=== PATIENT | female | born 1960 | race Caucasian/White ===

== ENCOUNTER 2021-10-02 12:34 | Emergency (ER) | payer OTHER, SELFPAY ==
[2021-10-02 12:46] VITALS: BP 138/70; PULSE 72; O2SAT 98
--- NOTE | 2021-10-02 12:53 | ED_ITS ---
HPI - Alcohol General Chief Complaint: ETOH/Substance Use Stated Complaint: ETOH,SI Time Seen by Provider: 10/02/21 12:46 Source: patient and EMS Mode of arrival: EMS Limitations: other (Alcohol intoxication) History of Present Illness HPI narrative: 61-year-old female with history of alcohol abuse has been to detox she states the last time was 20 years ago. States he has been a heavy drinker for most of her life she has been drinking vodka for several days. States her last drink was just prior to arrival in the emergency department. She also told EMS that she was feeling suicidal. Patient denies falls headache chest pain nausea vomiting or diarrhea. MD complaint: alcohol intoxication, alcohol dependence and desires rehab Related Data Allergies Allergy/AdvReac Type Severity Reaction Status Date / Time No Known Allergies Allergy Verified 10/02/21 12:49 Review of Systems Review of Systems: Review of systems: General: Patient denies any fever chills recent illness or falls Musculoskeletal: Denies back pain or body aches or other injuries HEENT: denies headache, runny nose, ear pain Respiratory: denies shortness of breath, cough Cardiovascular: no chest pain or palpitations : denies dysuria, frequency Abdomen: no nausea vomiting denies abdominal pain Extremities: no swelling, no pain Skin: no diaphoresis Yes all other systems are reviewed and are negative PMFSH Past Medical History Medical History (Updated 10/02/21 @ 19:02 by Blanco Ferreira DO) Alcoholism Social History Social History Advance Directives: No Advance Directives Information Provided: No Physical Exam Vital Signs: Vital Signs: Last Vital Signs Temp 98.1 F 10/02/21 15:02 Pulse 88 10/02/21 15:02 Resp 18 10/02/21 15:02 BP 110/63 10/02/21 15:02 Pulse Ox 97 10/02/21 15:02 BMI result Body Mass Index 21.9 General: Well-appearing well-nourished in no signs of distress HEENT: Normocephalic atraumatic alcoholic halitosis Neck: No signs of JVD, no masses no tenderness or lymphadenopathy Cardiovascular: Regular rate and rhythm Respiratory: Clear to auscultation bilaterally Abdomen: Soft nontender no masses Extremities: Normal pedal pulses no signs of edema Skin: Dry warm no rashes Back: No tenderness full ROM MDM - Alcohol MDM Narrative Medical decision making narrative: 61-year-old female heavily intoxicated I spoke with nursing about placing the patient on a sea what to watch for toxication as well as give medications. I will give patient fluids check labs. I will wait for the 1st alcohol level or give the patient Ativan. 1547 patient has no signs of withdrawal here in the emergency department labs show an elevated alcohol level patient was met by educators to see if patient could go to detox there are no detox beds available patient was given resources patient will not be sober until 19:00 hours. 1600 patient now in the room comfortably drink a soft drink I will give patient 1 mg Ativan. 1901 patient ambulated to bathroom without issue patient is now easily alert answering questions appropriately patient is given services to come for detox is [facility] beds available. Patient is happy with plan to go home. Differential Diagnosis Differential diagnosis: Likely alcohol dependence, alcohol withdrawal delirium, hypomagnesemia, alcohol intoxication, alcohol ketoacidosis and alcohol withdrawal syndrome Medical Records Attestation: I reviewed the patient's medical records. Lab Data Result diagrams: 10/02/21 13:03 10/02/21 13:03 Labs: Lab Results 10/02/21 10/02/21 10/02/21 Range/Units 13:00 13:03 13:03 WBC 7.1 (4.8-10.8) X10*3/uL RBC 4.66 (4.20-5.50) X10*6/uL Hgb 13.2 (12.0-16.0) g/dl Hct 40.2 (37.0-47.0) % MCV 86.3 (80.0-98.0) fL MCH 28.3 (27.0-33.0) pg MCHC 32.8 (31.0-35.0) g/dl RDW 14.3 (11.0-16.0) % Plt Count 469 H (160-400) X10*3/uL MPV 9.0 L (9.4-12.3) fL Immature Gran % (Auto) 0.1 (0.0-0.4) % Neut % (Auto) 32.2 L (45-73) % Lymph % (Auto) 54.2 H (20-40) % [place] % (Auto) 10.3 (2-11) % Eos % (Auto) 2.5 (0-4) % Baso % (Auto) 0.7 (0-2) % Lymph # (Auto) 3.9 (1.2-4.9) X10*3/uL [place] # (Auto) 0.7 (0.1-1.2) X10*3/uL Eos # (Auto) 0.2 (0.0-0.4) X10*3/uL Baso # (Auto) 0.1 (0.0-0.2) X10*3/uL Abs Immat Gran (auto) 0.01 (0.00-0.03) X10*3/uL Absolute Neuts (auto) 2.3 (2.0-8.3) x10*3/uL Absolute Nucleated RBC 0.000 (0.0-0.012) X10*3/uL Nucleated RBC % (auto) 0.0 (0.0-0.2) /100WBC Sodium 142 (135-145) mmol/L Potassium 4.0 (3.3-5.1) mmol/L Chloride 108 (96-108) mmol/L Carbon Dioxide 23 (22-29) mmol/L Anion Gap 15 (12-20) BUN 9 (9-16) mg/dL Creatinine 0.68 (0.5-1.4) mg/dL Estim Creat Clear Calc 86.6 Estimated GFR > 60 Random Glucose 72 (60-115) mg/dL Calcium 9.6 (8.4-10.2) mg/dL Total Bilirubin < 0.2 (0.0-1.0) mg/dL Direct Bilirubin < 0.2 (0.0-0.5) mg/dL AST 22 (5-31) U/L ALT 17 (0-31) U/L Alkaline Phosphatase 98 (39-117) U/L Total Protein 7.6 (6.5-8.0) g/dL Albumin 4.4 (3.5-5.0) g/dL Lipase 71 (8-78) U/L Salicylates < 5.0 L (15-30) mg/dL Acetaminophen < 1 (<30) mcg/mL Ethyl Alcohol mg/dL COVID-19 ([facility]) Negative (Negative) COVID-19 Clin Com See Note 10/02/21 Range/Units 13:03 WBC (4.8-10.8) X10*3/uL RBC (4.20-5.50) X10*6/uL Hgb (12.0-16.0) g/dl Hct (37.0-47.0) % MCV (80.0-98.0) fL MCH (27.0-33.0) pg MCHC (31.0-35.0) g/dl RDW (11.0-16.0) % Plt Count (160-400) X10*3/uL MPV (9.4-12.3) fL Immature Gran % (Auto) (0.0-0.4) % Neut % (Auto) (45-73) % Lymph % (Auto) (20-40) % [place] % (Auto) (2-11) % Eos % (Auto) (0-4) % Baso % (Auto) (0-2) % Lymph # (Auto) (1.2-4.9) X10*3/uL [place] # (Auto) (0.1-1.2) X10*3/uL Eos # (Auto) (0.0-0.4) X10*3/uL Baso # (Auto) (0.0-0.2) X10*3/uL Abs Immat Gran (auto) (0.00-0.03) X10*3/uL Absolute Neuts (auto) (2.0-8.3) x10*3/uL Absolute Nucleated RBC (0.0-0.012) X10*3/uL Nucleated RBC % (auto) (0.0-0.2) /100WBC Sodium (135-145) mmol/L Potassium (3.3-5.1) mmol/L Chloride (96-108) mmol/L Carbon Dioxide (22-29) mmol/L Anion Gap (12-20) BUN (9-16) mg/dL Creatinine (0.5-1.4) mg/dL Estim Creat Clear Calc Estimated GFR Random Glucose (60-115) mg/dL Calcium (8.4-10.2) mg/dL Total Bilirubin (0.0-1.0) mg/dL Direct Bilirubin (0.0-0.5) mg/dL AST (5-31) U/L ALT (0-31) U/L Alkaline Phosphatase (39-117) U/L Total Protein (6.5-8.0) g/dL Albumin (3.5-5.0) g/dL Lipase (8-78) U/L Salicylates (15-30) mg/dL Acetaminophen (<30) mcg/mL Ethyl Alcohol 275 mg/dL COVID-19 ([facility]) (Negative) COVID-19 Clin Com Discharge Plan Discharge Clinical Impression: Alcoholic intoxication, Alcohol withdrawal syndrome Patient Disposition: Home, Self-Care Instructions: Abuse of Alcohol (ED), Alcohol Use Disorder (ED), Alcohol Withdrawal (ED) Additional Instructions: Please call follow-up with detox if you have any other concerns please do not hesitate to come back to the emergency department Stand Alone Forms: Substance Abuse Outpt Detox
[2021-10-02 12:55] VITALS: BP 132/81; PULSE 90; RESP 18; TEMP 36.6; O2SAT 98; BMI 21.9
[2021-10-02 13:10] LABS: MANUAL DIFF FLAG NO
[2021-10-02 13:13] LABS: Basophils Absolute Auto 0.1 X10*3/uL (0.0-0.2); Basophils Percent Auto 0.7 % (0-2); Eosinophils Absolute Auto 0.2 X10*3/uL (0.0-0.4); Eosinophils Percent Auto 2.5 % (0-4); Hematocrit 40.2 % (37.0-47.0); Hemoglobin 13.2 g/dl (12.0-16.0); Imm Gran Abs Auto 0.01 X10*3/uL (0.00-0.03); Imm Gran Pct Auto 0.1 % (0.0-0.4); Lymphocytes Absolute Auto 3.9 X10*3/uL (1.2-4.9); Lymphocytes Percent Auto 54.2 % (20-40); Mean Corpuscular HGB Conc 32.8 g/dl (31.0-35.0); Mean Corpuscular Hemoglobin 28.3 pg (27.0-33.0); Mean Corpuscular Volume 86.3 fL (80.0-98.0); Monocytes Absolute Auto 0.7 X10*3/uL (0.1-1.2); Monocytes Percent Auto 10.3 % (2-11); Neutrophils Absolute Auto 2.3 x10*3/uL (2.0-8.3); Neutrophils Percent Auto 32.2 % (45-73); Platelet Count 469 X10*3/uL (160-400); Red Blood Count 4.66 X10*6/uL (4.20-5.50); Red Cell Distribution Width 14.3 % (11.0-16.0); White Blood Count 7.1 X10*3/uL (4.8-10.8)
[2021-10-02 13:26] LABS: COVID-19 Test Negative (Negative)
[2021-10-02 13:29] LABS: Ethanol 275 mg/dL
[2021-10-02 13:40] LABS: Salicylate < 5.0 mg/dL (15-30)
[2021-10-02 13:41] LABS: Acetaminophen LAB < 1 mcg/mL (<30); Alanine Aminotransferase 17 U/L (0-31); Albumin Level 4.4 g/dL (3.5-5.0); Alkaline Phosphatase 98 U/L (39-117); Anion Gap 15 (12-20); Aspartate Amino Transferase 22 U/L (5-31); Bilirubin Direct < 0.2 mg/dL (0.0-0.5); Bilirubin Total < 0.2 mg/dL (0.0-1.0); Blood Urea Nitrogen 9 mg/dL (9-16); Calcium 9.6 mg/dL (8.4-10.2); Carbon Dioxide 23 mmol/L (22-29); Chloride 108 mmol/L (96-108); Creatinine Clr Calc Pharmacy 86.6; Estimated Glomerular Filt Rate > 60; Glucose Random 72 mg/dL (60-115); Lipase 71 U/L (8-78); Sodium 142 mmol/L (135-145); Total Protein 7.6 g/dL (6.5-8.0)
--- NOTE | 2021-10-02 13:52 | MHC.RECOVSUP ---
? Reason for consult:Recovery Support o Current location: ED9 o Identified substance use concern:ETOH - Withdrawal - Seeking ATS (detox) - Support ? Intervention: o ATS bed search started/completed/in process o MAT started or to be started o Community resources provided o Harm reduction discussion ? Plan: o Referral to [facility] o Follow up tomorrow o Patient awaiting crisis evaluation o Patient to follow up with [facility] after discharge ? Additional information:Pt. seeking detox,spoke to pt. re:MAT and referred her to the [facility] and [facility]. Made pt. aware of no bed availability in the state.
[2021-10-02] MEDS: 0.9 % Sodium Chloride 500 ML 999 ML IV (15:00)
[2021-10-02 15:02] VITALS: BP 110/63; PULSE 88; RESP 18; TEMP 36.7; O2SAT 97
[2021-10-02] MEDS: LORazepam 1 MG TABLET 2 MG PO (15:51)
[2021-10-02 19:31] VITALS: BP 109/69; PULSE 87
== END 2021-10-02 19:41 | disposition home or self-care (01) ==
PROVIDERS: Emergency Provider Student in an Organized Health Care Education/Training Program; PCP Family Medicine
DX: F10.220 Alcohol dependence with intoxication, uncomplicated (principal); F10.230 Alcohol dependence with withdrawal, uncomplicated; Y90.8 Blood alcohol level of 240 mg/100 ml or more; Z20.822 Contact with and (suspected) exposure to COVID-19
CPT/HCPCS: 36415; 80048; 80076; 80143; 80179; 82077; 83690; 85025; 87635; 99284

== ENCOUNTER 2022-03-15 19:10 | Emergency (ER) | payer OTHER, SELFPAY ==
[2022-03-15] VITALS (8 sets, daily range): BP systolic 112–131; BP diastolic 72–92; PULSE 78–105; RESP 16–20; TEMP 37.2; O2SAT 95–98; BMI 28.0
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
[2022-03-15] MEDS: LORazepam 2 MG/ML VIAL IM (19:29)
[2022-03-15] MEDS: Haloperidol Lactate 5 MG/ML VIAL IM (19:29)
[2022-03-15] MEDS: diphenhydrAMINE HCL 50 MG/ML VIAL IM (19:29)
[2022-03-15 20:33] LABS: MANUAL DIFF FLAG NO
[2022-03-15 20:37] LABS: Basophils Percent Auto 0.9 % (0-2); Eosinophils Absolute Auto 0.1 X10*3/uL (0.0-0.4); Eosinophils Percent Auto 1.9 % (0-4); Hematocrit 35.2 % (37.0-47.0); Hemoglobin 11.7 g/dl (12.0-16.0); Lymphocytes Absolute Auto 2.5 X10*3/uL (1.2-4.9); Mean Corpuscular HGB Conc 33.2 g/dl (31.0-35.0); Mean Corpuscular Hemoglobin 29.4 pg (27.0-33.0); Mean Corpuscular Volume 88.4 fL (80.0-98.0); Mean Platelet Volume 8.9 fL (9.4-12.3); Monocytes Absolute Auto 0.4 X10*3/uL (0.1-1.2); Monocytes Percent Auto 9.5 % (2-11); Neutrophils Absolute Auto 1.2 x10*3/uL (2.0-8.3); Neutrophils Percent Auto 28.7 % (45-73); Platelet Count 463 X10*3/uL (160-400); Red Blood Count 3.98 X10*6/uL (4.20-5.50); Red Cell Distribution Width 13.4 % (11.0-16.0); White Blood Count 4.2 X10*3/uL (4.8-10.8)
[2022-03-15 20:57] LABS: Ethanol 351 mg/dL
[2022-03-15 21:00] LABS: Alanine Aminotransferase 25 U/L (0-31); Albumin Level 4.2 g/dL (3.5-5.0); Alkaline Phosphatase 95 U/L (39-117); Anion Gap 12 (12-20); Aspartate Amino Transferase 26 U/L (5-31); Bilirubin Direct < 0.2 mg/dL (0.0-0.5); Bilirubin Total 0.2 mg/dL (0.0-1.0); Blood Urea Nitrogen 6 mg/dL (9-16); Carbon Dioxide 23 mmol/L (22-29); Chloride 107 mmol/L (96-108); Creatinine Clr Calc Pharmacy 84.6; Estimated Glomerular Filt Rate > 60; Glucose Random 88 mg/dL (60-115); Sodium 138 mmol/L (135-145); Total Protein 6.9 g/dL (6.5-8.0)
[2022-03-16 00:36] VITALS: BP 102/72; PULSE 78; RESP 18; O2SAT 96
[2022-03-16] MEDS: 0.9 % Sodium Chloride 1,000 ML 999 ML IV (02:45)
[2022-03-16 02:58] VITALS: BP 81/43; PULSE 71; RESP 18; TEMP 37.1; O2SAT 97
[2022-03-16 04:15] VITALS: BP 90/56; PULSE 75; RESP 16; TEMP 36.3; O2SAT 98
[2022-03-16 05:11] VITALS: BP 106/53; PULSE 75; RESP 18; TEMP 36.6; O2SAT 97
[2022-03-16 05:59] VITALS: BP 94/56; PULSE 79; RESP 18; O2SAT 96
--- NOTE | 2022-03-16 06:27 | PC.NURSE ---
[facility] online referral completed by this RN.
--- NOTE | 2022-03-16 08:32 | PC.NURSE ---
Pt is a/o, ambulatory with a steady gait. Pt denies SI and HI. Pt provided and educated on DC instructions. Verbalized understanding. pt DCd home at this time.
== END 2022-03-16 08:33 | disposition home or self-care (01) ==
PROVIDERS: Emergency Medicine; Emergency Provider Emergency Medicine Emergency Medical Services
DX: F10.229 Alcohol dependence with intoxication, unspecified (principal); Y90.8 Blood alcohol level of 240 mg/100 ml or more; R45.851 Suicidal ideations
CPT/HCPCS: 36415; 80048; 80076; 82077; 83735; 85025; 96360; 96372; 99285; J1200; J2060

== ENCOUNTER 2022-11-10 08:44 | Inpatient (IN) | payer OTHER, SELFPAY ==
[2022-11-10] VITALS (9 sets, daily range): BP systolic 95–165; BP diastolic 48–110; PULSE 66–121; RESP 12–18; TEMP 28.8–36.9; O2SAT 95–97; BMI 20.5
--- NOTE | 2022-11-10 08:56 | ED_ITS ---
HPI - General Adult General Chief complaint: ETOH/Substance Use <ARIADNA Jordan - Last Filed: 11/10/22 19:09> Stated complaint: ETOH INTOX,SI THREATS,REFUSE BP,RESTRAINED PER EMS <ARIADNA Jordan - Last Filed: 11/10/22 19:09> Time Seen by Provider: 11/10/22 08:55 <ARIADNA Jordan - Last Filed: 11/10/22 19:09> Source: patient and EMS <ARIADNA Jordan - Last Filed: 11/10/22 19:09> Mode of arrival: EMS <ARIADNA Jordan Last Filed: 11/10/22 19:09> Limitations: physical limitation (intoxicated) <ARIADNA Jordan - Last Filed: 11/10/22 19:09> History of Present Illness HPI narrative: Patient is a 62 year old assigned female at with no reported medical history presenting to the emergency department today intoxicated and suicidal. Patient states that she has been drinking alcohol and feels like killing herself. Patient states that she wants to . Patient denies any dizziness, lightheadedness, abdominal pain, nausea, vomiting, fever, chills, blurry vision, double vision, loss of vision, chest pain, difficulty breathing, shortness of breath, back pain, night sweats, pain with urination, increased urinary frequency, increased urinary urgency, blood in her urine or stool, syncope or a near syncopal episode, recent trauma or falls, bowel incontinence, bladder incontinence, bowel retention, bladder retention, or any other complaints at this time. Patient states that her daughter is who called EMS. <ARIADNA Jordan - Last Filed: 11/10/22 19:09> Severity: moderate <ARIADNA Jordan - Last Filed: 11/10/22 19:09> Relieving factors: none <ARIADNA Jordan Last Filed: 11/10/22 19:09> Exacerbating factors: none <ARIADNA Jordan Last Filed: 11/10/22 19:09> Associated symptoms: denies other symptoms <ARIADNA Jordan Last Filed: 11/10/22 19:09> Treatments prior to arrival: none <ARIADNA Jordan Last Filed: 11/10/22 19:09> Related Data Allergies/adverse reactions: Allergies Allergy/AdvReac Type Severity Reaction Status Date / Time No Known Allergies Allergy Verified 10/02/21 12:49 <ARIADNA Jordan Last Filed: 11/10/22 19:09> Review of Systems Constitutional: Constitutional: Reports no additional constitutional complaints, Denies chills, Denies fever(s) and Denies night sweats <ARIADNA Jordan - Last Filed: 11/10/22 19:09> Eyes: Eyes: Reports no additional eye complaints, Denies blurry vision, Denies change in vision, Denies diplopia, Denies eye discharge, Denies loss of vision and Denies eye pain <ARIADNA Jordan - Last Filed: 11/10/22 19:09> ENT: Denies dizziness <ARIADNA Jordan - Last Filed: 11/10/22 19:09> Cardiovascular: Cardiovascular: Reports no additional cardiovascular complaints, Denies chest pain, Denies lightheadedness, Denies Loss of Consciousness and Denies dyspnea <ARIADNA Jordan - Last Filed: 11/10/22 19:09> Respiratory: Respiratory: Reports no additional respiratory complaints and Denies dyspnea <ARIADNA Jordan Last Filed: 11/10/22 19:09> Gastrointestinal: Gastrointestinal: Reports no additional gastrointestinal complaints, Denies abdominal pain, Denies melena, Denies hematochezia, Denies change in bowel habits and Denies change in stool character <ARIADNA Jordan Last Filed: 11/10/22 19:09> Genitourinary: Genitourinary: Denies hematuria, Denies urinary frequency, Denies dysuria, Denies urinary incontinence, Denies urinary hesitancy and Denies urinary urgency <ARIADNA Jordan - Last Filed: 11/10/22 19:09> Musculoskeletal: Musculoskeletal: Reports no additional musculoskeletal complaints, Denies numbness and Denies tingling <ARIADNA Jordan - Last Filed: 11/10/22 19:09> Neurologic: Denies dizziness, Denies loss of vision, Denies numbness and Denies tingling <ARIADNA Jordan - Last Filed: 11/10/22 19:09> Psychiatric: Psychiatric: Denies homicidal ideation and Reports suicidal ideation <ARIADNA Jordan - Last Filed: 11/10/22 19:09> Endocrine: Endocrine: Reports no additional endocrine complaints <ARIADNA Jordan - Last Filed: 11/10/22 19:09> Hematologic/Lymphatic: Hematologic/Lymphatic: Reports no additional hematolo gic/lymphatic complaints <ARIADNA Jordan - Last Filed: 11/10/22 19:09> Allergic/Immunologic: Allergic/Immunologic: Reports no additional allergic/immunologic complaints <ARIADNA Jordan - Last Filed: 11/10/22 19:09> [facility] Past Medical History Attestation statement: The following information was validated with the patient. <ARIADNA Jordan - Last Filed: 11/10/22 19:09> Source: old records reviewed and nursing notes reviewed <ARIADNA Jordan - Last Filed: 11/10/22 19:09> Medical History: Medical History Alcoholism <ARIADNA Jordan - Last Filed: 11/10/22 19:09> Social History Social History: Social History Advance Directives: No Advance Directives Information Provided: Yes <ARIADNA Jordan - Last Filed: 11/10/22 19:09> Physical Exam ED Vital Signs: Vital Signs - 24 hr 11/10/22 09:07 11/10/22 14:00 11/10/22 16:00 Temperature 84 F L 98.5 F Pulse Rate 84 78 Respiratory Rate 18 16 16 Blood Pressure 165/110 H 101/65 Pulse Oximetry 97 96 Oxygen Delivery Method Room Air Room Air 11/10/22 17:54 11/10/22 20:00 11/10/22 20:40 Temperature 97.6 F 97.7 F Pulse Rate 78 74 66 Respiratory Rate 16 16 12 Blood Pressure 103/62 95/48 L 98/55 L Pulse Oximetry 95 97 95 Oxygen Delivery Method Room Air Room Air Room Air BMI result Body Mass Index 20.5 <ARIADNA Jordan - Last Filed: 11/10/22 19:09> Vital Signs - 24 hr 11/10/22 09:07 11/10/22 14:00 11/10/22 16:00 Temperature 84 F L 98.5 F Pulse Rate 84 78 Respiratory Rate 18 16 16 Blood Pressure 165/110 H 101/65 Pulse Oximetry 97 96 Oxygen Delivery Method Room Air Room Air 11/10/22 17:54 11/10/22 20:00 11/10/22 20:40 Temperature 97.6 F 97.7 F Pulse Rate 78 74 66 Respiratory Rate 16 16 12 Blood Pressure 103/62 95/48 L 98/55 L Pulse Oximetry 95 97 95 Oxygen Delivery Method Room Air Room Air Room Air BMI result Body Mass Index 20.5 <Elizabeth Bearden MD - Last Filed: 11/10/22 20:48> Const General: no acute distress, alert, awake and intoxicated appearing <ARIADNA Jordan - Last Filed: 11/10/22 19:09> Nutritional Appearance: well nourished <ARIADNA Jordan - Last Filed: 11/10/22 19:09> Orientation/consciousness: patient oriented x3 <ARIADNA Jordan - Last Filed: 11/10/22 19:09> Limitations: no limitations <ARIADNA Jordan - Last Filed: 11/10/22 19:09> HENMT Head: Yes normal to inspection and Yes atraumatic <ARIADNA Jordan - Last Filed: 11/10/22 19:09> Ears: hearing grossly normal bilaterally and external ears normal <ARIADNA Jordan - Last Filed: 11/10/22 19:09> General nose exam: Normal external nose present, no nasal discharge noted and no epistaxis <ARIADNA Jordan - Last Filed: 11/10/22 19:09> Face and sinus: Yes normal facial exam, No abrasion and No laceration <ARIADNA Jordan - Last Filed: 11/10/22 19:09> Mouth: Normal oral and palatal mucosa present, no drooling and no muffled voice <ARIADNA Jordan - Last Filed: 11/10/22 19:09> Eyes General: appearance normal, both eyes and all related structures <ARIADNA Jordan - Last Filed: 11/10/22 19:09> Periorbital: periorbital findings normal <ARIADNA Jordan - Last Filed: 11/10/22 19:09> Eyelids: Yes eyelids normal <Mindi Oneal PA - Last Filed: 11/10/22 19:09> Conjunctivae: conjunctivae normal <Mindi Oneal PA - Last Filed: 11/10/22 19:09> Pupils: Equal, round and reactive pupils present <Mindi Oneal PA - Last Filed: 11/10/22 19:09> EOM: EOMs intact bilaterally <Mindi Oneal, PA - Last Filed: 11/10/22 19:09> Neck Neck: Yes normal visual inspection, Yes full ROM and Yes no lymphadenopathy <Mindi Oneal PA - Last Filed: 11/10/22 19:09> Chest Chest palpation & inspection: normal inspection of the chest <Mindi Oneal PA - Last Filed: 11/10/22 19:09> Resp Effort & Inspection: normal respiratory effort and able to speak in complete sentences <Mindi Oneal PA - Last Filed: 11/10/22 19:09> GI Inspection: Yes normal to inspection <Mindi Oneal PA - Last Filed: 11/10/22 19:09> Neuro General: patient oriented x3 and moves all extremities <Mindi Oneal PA - Last Filed: 11/10/22 19:09> Cranial nerves: Yes Equal, round and reactive pupils present <Mindi Oneal PA - Last Filed: 11/10/22 19:09> Cognition (Neuro): normal cognition <Mindi Oneal PA - Last Filed: 11/10/22 19:09> Motor exam (neuro): 5/5 motor strength present throughout <Mindi Oneal PA - Last Filed: 11/10/22 19:09> Sensory Exam: Normal double simultaneous stimulation for sensation <Mindi Oneal PA - Last Filed: 11/10/22 19:09> Coordination: [id number] test normal <Mindi Oneal PA - Last Filed: 11/10/22 19:09> Extrem General: Yes normal to inspection, Yes full ROM and Yes capillary refill normal <Mindi Oneal PA - Last Filed: 11/10/22 19:09> Psych Mental Status: mental status grossly normal <Mindi Oneal PA - Last Filed: 11/10/22 19:09> Attitude: Guarded attititude/behavior present <ARIADNA Jordan - Last Filed: 0 11/10/22 19:09> Thought content: Suicidality present <ARIADNA Jordan - Last Filed: 11/10/22 19:09> Insight: Limited insight present (Psych) <ARIADNA Jordan - Last Filed: 11/10/22 19:09> Judgement: Limited judgement present (Psych) <ARIADNA Jordan - Last Filed: 11/10/22 19:09> Medications Administered Discontinued Medications Generic Name Dose Route Start Last Admin Trade Name Freq PRN Reason Stop Dose Admin Diphenhydramine HCl 25 mg 11/10/22 09:05 11/10/22 09:24 Diphenhydramine Hcl 50 Mg/Ml Vial IM 11/10/22 09:06 Not Given ONCE ONE Haloperidol Lactate 5 mg 11/10/22 09:05 11/10/22 09:24 Haloperidol Lactate 5 Mg/Ml Vial IM 11/10/22 09:06 Not Given ONCE ONE Lorazepam 2 mg 11/10/22 20:31 11/10/22 20:39 Lorazepam 2 Mg/Ml Vial IVPUSH 11/10/22 20:32 2 mg ONCE STA Administration Olanzapine 10 mg 11/10/22 09:08 11/10/22 09:23 Olanzapine 10 Mg Tablet PO 11/10/22 09:09 10 mg ONCE ONE Administration <ARIADNA Jordan - Last Filed: 11/10/22 19:09> Medications Administered Discontinued Medications Generic Name Dose Route Start Last Admin Trade Name Freq PRN Reason Stop Dose Admin Diphenhydramine HCl 25 mg 11/10/22 09:05 11/10/22 09:24 Diphenhydramine Hcl 50 Mg/Ml Vial IM 11/10/22 09:06 Not Given ONCE ONE Haloperidol Lactate 5 mg 11/10/22 09:05 11/10/22 09:24 Haloperidol Lactate 5 Mg/Ml Vial IM 11/10/22 09:06 Not Given ONCE ONE Lorazepam 2 mg 11/10/22 20:31 11/10/22 20:39 Lorazepam 2 Mg/Ml Vial IVPUSH 11/10/22 20:32 2 mg ONCE STA Administration Olanzapine 10 mg 11/10/22 09:08 11/10/22 09:23 Olanzapine 10 Mg Tablet PO 11/10/22 09:09 10 mg ONCE ONE Administration <Elizabeth Bearden MD - Last Filed: 11/10/22 20:48> Medical Decision Making Medical Decision Making MDM Narrative: Patient is a 62 year old assigned female at with no reported medical history presenting to the emergency department today with acute alcohol intoxication and suicidal ideation. Patient's physical exam showed an obviously intoxicated woman expressing suicidal ideation. Patient's blood work showed an elevated ETOH of 351 but was otherwise unremarkable. Patient's urine showed no acute process. I explained my physical exam findings as well as all test results to the patient. I answered all questions asked by the patient. At this time, the patient is awaiting a crisis evaluation. Diet ordered. Patient placed on physic laura observation pending crisis eval. <ARIADNA Jordan - Last Filed: 0 11/10/22 19:09> Patient is a 62 year old assigned female at with no reported medical history presenting to the emergency department today with acute alcohol intoxication and suicidal ideation. Patient's physical exam showed an obviously intoxicated woman expressing suicidal ideation. Patient's blood work showed an elevated ETOH of 351 but was otherwise unremarkable. Patient's urine showed no acute process. I explained my physical exam findings as well as all test results to the patient. I answered all questions asked by the patient. At this time, the patient is awaiting a crisis evaluation. Diet ordered. Patient placed on physician observation pending crisis eval. -20:25: Patient was waiting to be seen by [facility]. Patient a sked for assistance to go to the bathroom. I was informed by the tech that the patient started having a seizure. Patient was placed immediately in a gurney, patient had urinary and fecal incontinence, did not bite her tongue. Patient had an alcohol withdrawal seizure. Patient stop seizing before we could get any medication. Shortly after we gave her 2 mg IM of Ativan. Also started on phenobarb protocol. Eyes are not pinpoint, overdose in the bathroom not suspected. Patient did not hit her head according to the tech. Patient remains on a [address] and needs a sitter due to her previous suicidal statements. I discussed the above-mentioned with Dr. Blunt, patient being admitted for alcohol withdrawal seizures <Elizabeth Bearden MD - Last Filed: 11/10/22 20:48> Differential Diagnosis Differential Diagnoses: The differential diagnosis associated with the presentation includes <ARIADNA Jordan - Last Filed: 11/10/22 19:09> alcohol intoxication, crisis, suicidal ideation <ARIADNA Jordan - Last Filed: 11/10/22 19:09> Lab Data MDM Lab Attestation statement: I reviewed the patient's lab results. <ARIADNA Jordan - Last Filed: 11/10/22 19:09> Result Diagrams: 11/10/22 09:48 11/10/22 09:48 <ARIADNA Jordan - Last Filed: 11/10/22 19:09> Labs: Lab Results 11/10/22 11/10/22 11/10/22 Range/Units 09:48 09:48 10:17 WBC 4.5 L (4.8-10.8) X10*3/uL RBC 4.26 (4.20-5.50) X10*6/uL Hgb 12.2 (12.0-16.0) g/dl Hct 36.6 L (37.0-47.0) % MCV 85.9 (80.0-98.0) fL MCH 28.6 (27.0-33.0) pg MCHC 33.3 (31.0-35.0) g/dl RDW 17.2 H (11.0-16.0) % Plt Count 447 H (160-400) X10*3/uL MPV 8.5 L (9.4-12.3) fL Immature Gran % (Auto) 0.2 (0.0-0.4) % Neut % (Auto) 33.5 L (45-73) % Lymph % (Auto) 53.0 H (20-40) % Meigs % (Auto) 11.5 H (2-11) % Eos % (Auto) 0.9 (0-4) % Baso % (Auto) 0.9 (0-2) % Lymph # (Auto) 2.4 (1.2-4.9) X10*3/uL Meigs # (Auto) 0.5 (0.1-1.2) X10*3/uL Eos # (Auto) 0.0 (0.0-0.4) X10*3/uL Baso # (Auto) 0.0 (0.0-0.2) X10*3/uL Abs Immat Gran (auto) 0.01 (0.00-0.03) X10*3/uL Absolute Neuts (auto) 1.5 L (2.0-8.3) x10*3/uL Absolute Nucleated RBC 0.000 (0.0-0.012) X10*3/uL Nucleated RBC % (auto) 0.0 (0.0-0.2) /100WBC Sodium 138 (135-145) mmol/L Potassium 4.0 (3.3-5.1) mmol/L Chloride 103 (96-108) mmol/L Carbon Dioxide 25 (22-29) mmol/L Anion Gap 14 (12-20) BUN 6 L (9-16) mg/dL Creatinine 0.68 (0.5-1.4) mg/dL Estim Creat Clear Calc 85.0 Estimated GFR > 60 Random Glucose 93 (60-115) mg/dL Calcium 9.0 (8.4-10.2) mg/dL Total Bilirubin 0.2 (0.0-1.0) mg/dL AST 26 (5-31) U/L ALT 17 (0-31) U/L Alkaline Phosphatase 92 (39-117) U/L Total Protein 7.0 (6.5-8.0) g/dL Albumin 4.2 (3.5-5.0) g/dL Urine Color Yellow Urine Appearance Clear Urine pH 6.0 (5.0-9.0) Ur Specific [place] <= 1.005 (1.005-1.025) Urine Protein Negative (Neg-Trace) mg/dL Urine Glucose (UA) Negative (Negative) mg/dL Urine Ketones Negative (Negative) mg/dL Urine Blood Negative (Negative) Urine Nitrite Negative (Negative) Ur Leukocyte Esterase Trace H (Negative) Urine RBC 0-2 (0-2) /HPF Urine WBC 0-5 (0-5) /HPF Ur Squamous Epith Cells 0-2 (0-2) /HPF Urine Bacteria None Seen (None Seen) Hyaline Casts 0-2 (0-2) /LPF Salicylates < 5.0 L (15-30) mg/dL Urine Opiates Screen (Not Detect) Urine Fentanyl Screen (Not Detect) Acetaminophen < 17 (<30) mcg/mL Ur Barbiturates Screen (Not Detect) Ur Phencyclidine Scrn (Not Detect) Ur Amphetamines Screen (Not Detect) U Benzodiazepines Scrn (Not Detect) Urine Cocaine Screen (Not Detect) U Marijuana (THC) Screen (Not Detect) Ethyl Alcohol 351 H* mg/dL 11/10/22 Range/Units 10:17 WBC (4.8-10.8) X10*3/uL RBC (4.20-5.50) X10*6/uL Hgb (12.0-16.0) g/dl Hct (37.0-47.0) % MCV (80.0-98.0) fL MCH (27.0-33.0) pg MCHC (31.0-35.0) g/dl RDW (11.0-16.0) % Plt Count (160-400) X10*3/uL MPV (9.4-12.3) fL Immature Gran % (Auto) (0.0-0.4) % Neut % (Auto) (45-73) % Lymph % (Auto) (20-40) % Meigs % (Auto) (2-11) % Eos % (Auto) (0-4) % Baso % (Auto) (0-2) % Lymph # (Auto) (1.2-4.9) X10*3/uL [place]igs # (Auto) (0.1-1.2) X10*3/uL Eos # (Auto) (0.0-0.4) X10*3/uL Baso # (Auto) (0.0-0.2) X10*3/uL Abs Immat Gran (auto) (0.00-0.03) X10*3/uL Absolute Neuts (auto) (2.0-8.3) x10*3/uL Absolute Nucleated RBC (0.0-0.012) X10*3/uL Nucleated RBC % (auto) (0.0-0.2) /100WBC Sodium (135-145) mmol/L Potassium (3.3-5.1) mmol/L Chloride (96-108) mmol/L Carbon Dioxide (22-29) mmol/L Anion Gap (12-20) BUN (9-16) mg/dL Creatinine (0.5-1.4) mg/dL Estim Creat Clear Calc Estimated GFR Random Glucose (60-115) mg/dL Calcium (8.4-10.2) mg/dL Total Bilirubin (0.0-1.0) mg/dL AST (5-31) U/L ALT (0-31) U/L Alkaline Phosphatase (39-117) U/L Total Protein (6.5-8.0) g/dL Albumin (3.5-5.0) g/dL Urine Color Urine Appearance Urine pH (5.0-9.0) Ur Specific [place] (1.005-1.025) Urine Protein (Neg-Trace) mg/dL Urine Glucose (UA) (Negative) mg/dL Urine Ketones (Negative) mg/dL Urine Blood (Negative) Urine Nitrite (Negative) Ur Leukocyte Esterase (Negative) Urine RBC (0-2) /HPF Urine WBC (0-5) /HPF Ur Squamous Epith Cells (0-2) /HPF Urine Bacteria (None Seen) Hyaline Casts (0-2) /LPF Salicylates (15-30) mg/dL Urine Opiates Screen Not Detected (Not Detect) Urine Fentanyl Screen Not Detected (Not Detect) Acetaminophen (<30) mcg/mL Ur Barbiturates Screen Not Detected (Not Detect) Ur Phencyclidine Scrn Not Detected (Not Detect) Ur Amphetamines Screen Not Detected (Not Detect) U Benzodiazepines Scrn Not Detected (Not Detect) Urine Cocaine Screen Not Detected (Not Detect) U Marijuana (THC) Screen POSITIVE H (Not Detect) Ethyl Alcohol mg/dL <ARIADNA Jordan - Last Filed: 11/10/22 19:09> Lab Results 11/10/22 11/10/22 11/10/22 Range/Units 09:48 09:48 10:17 WBC 4.5 L (4.8-10.8) X10*3/uL RBC 4.26 (4.20-5.50) X10*6/uL Hgb 12.2 (12.0-16.0) g/dl Hct 36.6 L (37.0-47.0) % MCV 85.9 (80.0-98.0) fL MCH 28.6 (27.0-33.0) pg MCHC 33.3 (31.0-35.0) g/dl RDW 17.2 H (11.0-16.0) % Plt Count 447 H (160-400) X10*3/uL MPV 8.5 L (9.4-12.3) fL Immature Gran % (Auto) 0.2 (0.0-0.4) % Neut % (Auto) 33.5 L (45-73) % Lymph % (Auto) 53.0 H (20-40) % Meigs % (Auto) 11.5 H (2-11) % Eos % (Auto) 0.9 (0-4) % Baso % (Auto) 0.9 (0-2) % Lymph # (Auto) 2.4 (1.2-4.9) X10*3/uL Meigs # (Auto) 0.5 (0.1-1.2) X10*3/uL Eos # (Auto) 0.0 (0.0-0.4) X10*3/uL Baso # (Auto) 0.0 (0.0-0.2) X10*3/uL Abs Immat Gran (auto) 0.01 (0.00-0.03) X10*3/uL Absolute Neuts (auto) 1.5 L (2.0-8.3) x10*3/uL Absolute Nucleated RBC 0.000 (0.0-0.012) X10*3/uL Nucleated RBC % (auto) 0.0 (0.0-0.2) /100WBC Sodium 138 (135-145) mmol/L Potassium 4.0 (3.3-5.1) mmol/L Chloride 103 (96-108) mmol/L Carbon Dioxide 25 (22-29) mmol/L Anion Gap 14 (12-20) BUN 6 L (9-16) mg/dL Creatinine 0.68 (0.5-1.4) mg/dL Estim Creat Clear Calc 85.0 Estimated GFR > 60 Random Glucose 93 (60-115) mg/dL Calcium 9.0 (8.4-10.2) mg/dL Total Bilirubin 0.2 (0.0-1.0) mg/dL AST 26 (5-31) U/L ALT 17 (0-31) U/L Alkaline Phosphatase 92 (39-117) U/L Total Protein 7.0 (6.5-8.0) g/dL Albumin 4.2 (3.5-5.0) g/dL Urine Color Yellow Urine Appearance Clear Urine pH 6.0 (5.0-9.0) Ur Specific [place] <= 1.005 (1.005-1.025) Urine Protein Negative (Neg-Trace) mg/dL Urine Glucose (UA) Negative (Negative) mg/dL Urine Ketones Negative (Negative) mg/dL Urine Blood Negative (Negative) Urine Nitrite Negative (Negative) Ur Leukocyte Esterase Trace H (Negative) Urine RBC 0-2 (0-2) /HPF Urine WBC 0-5 (0-5) /HPF Ur Squamous Epith Cells 0-2 (0-2) /HPF Urine Bacteria None Seen (None Seen) Hyaline Casts 0-2 (0-2) /LPF Salicylates < 5.0 L (15-30) mg/dL Urine Opiates Screen (Not Detect) Urine Fentanyl Screen (Not Detect) Acetaminophen < 17 (<30) mcg/mL Ur Barbiturates Screen (Not Detect) Ur Phencyclidine Scrn (Not Detect) Ur Amphetamines Screen (Not Detect) U Benzodiazepines Scrn (Not Detect) Urine Cocaine Screen (Not Detect) U Marijuana (THC) Screen (Not Detect) Ethyl Alcohol 351 H* mg/dL 11/10/22 Range/Units 10:17 WBC (4.8-10.8) X10*3/uL RBC (4.20-5.50) X10*6/uL Hgb (12.0-16.0) g/dl Hct (37.0-47.0) % MCV (80.0-98.0) fL MCH (27.0-33.0) pg MCHC (31.0-35.0) g/dl RDW (11.0-16.0) % Plt Count (160-400) X10*3/uL MPV (9.4-12.3) fL Immature Gran % (Auto) (0.0-0.4) % Neut % (Auto) (45-73) % Lymph % (Auto) (20-40) % Meigs % (Auto) (2-11) % Eos % (Auto) (0-4) % Baso % (Auto) (0-2) % Lymph # (Auto) (1.2-4.9) X10*3/uL Meigs # (Auto) (0.1-1.2) X10*3/uL Eos # (Auto) (0.0-0.4) X10*3/uL Baso # (Auto) (0.0-0.2) X10*3/uL Abs Immat Gran (auto) (0.00-0.03) X10*3/uL Absolute Neuts (auto) (2.0-8.3) x10*3/uL Absolute Nucleated RBC (0.0-0.012) X10*3/uL Nucleated RBC % (auto) (0.0-0.2) /100WBC Sodium (135-145) mmol/L Potassium (3.3-5.1) mmol/L Chloride (96-108) mmol/L Carbon Dioxide (22-29) mmol/L Anion Gap (12-20) BUN (9-16) mg/dL Creatinine (0.5-1.4) mg/dL Estim Creat Clear Calc Estimated GFR Random Glucose (60-115) mg/dL Calcium (8.4-10.2) mg/dL Total Bilirubin (0.0-1.0) mg/dL AST (5-31) U/L ALT (0-31) U/L Alkaline Phosphatase (39-117) U/L Total Protein (6.5-8.0) g/dL Albumin (3.5-5.0) g/dL Urine Color Urine Appearance Urine pH (5.0-9.0) Ur Specific [place] (1.005-1.025) Urine Protein (Neg-Trace) mg/dL Urine Glucose (UA) (Negative) mg/dL Urine Ketones (Negative) mg/dL Urine Blood (Negative) Urine Nitrite (Negative) Ur Leukocyte Esterase (Negative) Urine RBC (0-2) /HPF Urine WBC (0-5) /HPF Ur Squamous Epith Cells (0-2) /HPF Urine Bacteria (None Seen) Hyaline Casts (0-2) /LPF Salicylates (15-30) mg/dL Urine Opiates Screen Not Detected (Not Detect) Urine Fentanyl Screen Not Detected (Not Detect) Acetaminophen (<30) mcg/mL Ur Barbiturates Screen Not Detected (Not Detect) Ur Phencyclidine Scrn Not Detected (Not Detect) Ur Amphetamines Screen Not Detected (Not Detect) U Benzodiazepines Scrn Not Detected (Not Detect) Urine Cocaine Screen Not Detected (Not Detect) U Marijuana (THC) Screen POSITIVE H (Not Detect) Ethyl Alcohol mg/dL <Elizabeth Bearden MD - Last Filed: 11/10/22 20:48> Critical Care Time Critical Care Time Critical Care Time: Yes <Elizabeth Bearden MD - Last Filed: 11/10/22 20:48> Total Critical Care Time: 45 <Elizabeth Bearden MD - Last Filed: 11/10/22 20:48> Attestation: I have personally provided critical care time. Time includes review of lab data, radiology results, discussion with consultants, and monitoring for potential decompensation. Intervention performed as documented. <Elizabeth Bearden MD - Last Filed: 11/10/22 20:48> Discharge Plan Discharge Clinical Impression: Suicidal ideation, Alcoholic intoxication, Alcohol withdrawal seizure <ARIADNA Jordan - Last Filed: 11/10/22 19:09> Patient Disposition: Admitted As Inpatient <ARIADNA Jordan - Last Filed: 11/10/22 19:09> Interventions: [place]-Suicide Risk Severity Scale Last Done: 11/10/22 17:10 <ARIADNA Jordan - Last Filed: 11/10/22 19:09>
[2022-11-10] MEDS: OLANZapine 10 MG TABLET PO (09:23)
[2022-11-10 09:52] LABS: MANUAL DIFF FLAG NO
[2022-11-10 09:53] LABS: Basophils Percent Auto 0.9 % (0-2); Eosinophils Percent Auto 0.9 % (0-4); Hematocrit 36.6 % (37.0-47.0); Hemoglobin 12.2 g/dl (12.0-16.0); Imm Gran Abs Auto 0.01 X10*3/uL (0.00-0.03); Imm Gran Pct Auto 0.2 % (0.0-0.4); Lymphocytes Absolute Auto 2.4 X10*3/uL (1.2-4.9); Mean Corpuscular HGB Conc 33.3 g/dl (31.0-35.0); Mean Corpuscular Hemoglobin 28.6 pg (27.0-33.0); Mean Corpuscular Volume 85.9 fL (80.0-98.0); Mean Platelet Volume 8.5 fL (9.4-12.3); Monocytes Absolute Auto 0.5 X10*3/uL (0.1-1.2); Monocytes Percent Auto 11.5 % (2-11); Neutrophils Absolute Auto 1.5 x10*3/uL (2.0-8.3); Neutrophils Percent Auto 33.5 % (45-73); Platelet Count 447 X10*3/uL (160-400); Red Blood Count 4.26 X10*6/uL (4.20-5.50); Red Cell Distribution Width 17.2 % (11.0-16.0); White Blood Count 4.5 X10*3/uL (4.8-10.8)
[2022-11-10 10:23] LABS: Acetaminophen LAB < 17 mcg/mL (<30); Alanine Aminotransferase 17 U/L (0-31); Albumin Level 4.2 g/dL (3.5-5.0); Alkaline Phosphatase 92 U/L (39-117); Anion Gap 14 (12-20); Aspartate Amino Transferase 26 U/L (5-31); Bilirubin Total 0.2 mg/dL (0.0-1.0); Blood Urea Nitrogen 6 mg/dL (9-16); Carbon Dioxide 25 mmol/L (22-29); Chloride 103 mmol/L (96-108); Estimated Glomerular Filt Rate > 60; Ethanol 351 mg/dL; Glucose Random 93 mg/dL (60-115); Salicylate < 5.0 mg/dL (15-30); Sodium 138 mmol/L (135-145)
[2022-11-10 10:32] LABS: Appearance Urine Clear; Color Urine Yellow; Glucose Urine UA Negative (Negative); Leukocyte Esterase Urine Trace (Negative); Nitrite Urine Negative (Negative); Specific Gravity - Urine <= 1.005 (1.005-1.025); UMIC TRIGGER UA YES; Urine Blood Negative (Negative); Urine Ketones Negative (Negative); Urine Protein Negative (Neg-Trace)
[2022-11-10 10:35] LABS: Amphetamine Screen Urine Not Detected (Not Detect); Barbiturates, Urine Not Detected (Not Detect); Benzodiazepines Screen Urine Not Detected (Not Detect); Cannabinoid Screen Urine POSITIVE (Not Detect); Cocaine Screen Urine Not Detected (Not Detect); Fentanyl, urine Not Detected (Not Detect); Opiate Screen Urine Not Detected (Not Detect); Phencyclidine Screen Urine Not Detected (Not Detect)
[2022-11-10 11:08] LABS: Bacteria Urine None Seen (None Seen); Hyaline Casts Urine 0-2 /LPF (0-2); RBC Urine 0-2 /HPF (0-2); Squamous Epithelial Cell Urine 0-2 /HPF (0-2); WBC Urine 0-5 /HPF (0-5)
--- NOTE | 2022-11-10 11:56 | PC.NURSE ---
assumed care of pt at 1100, pt sleeping, RR 16 even and unlabored. 1:1 at bedside due to SI statements.
--- NOTE | 2022-11-10 15:00 | MHC.EDTECH ---
this pct assumed care of pt at 1600 ,1600 vitals taken ,pt sleeping ,patient observer at bedside .
--- NOTE | 2022-11-10 15:21 | PC.NURSE ---
pt continues to sleep, RR 16, resp even and unlabored, 1:1 at bedside.
--- NOTE | 2022-11-10 19:06 | PC.NURSE ---
pt sleeping, vss, RR even and unlabored. 1:1 at bedside.
--- NOTE | 2022-11-10 19:43 | MHC.RECOVSUP ---
? Reason for consult: Recovery Support o ?Current location: ED 22 o ?Identified substance use concern: Substance Use Disorder ? ? Additional information:?Pt sleeping, wasn't seen at this time.
[2022-11-10] MEDS: LORazepam 2 MG/ML VIAL IVPUSH (20:39)
--- NOTE | 2022-11-10 20:41 | PC.NURSE ---
Assumed care for pt. Pt in ETOH withdrawal. CIWA 15. Ativan 2mg administered IV. NSR on monitor with HR 66. Breaths are even and unlabored. O2 sat 95% RA. Seizure precautions in place. Will continue to monitor.
--- NOTE | 2022-11-10 20:47 | PC.NURSE ---
late note: pt assisted in ambulating to bathroom by 1:1 tech, pt became pale and started to have seizure like activity, urinated on self, pt placed on O2 and brought back to room, RN-RN report given to nurse. providers at bedside.
[2022-11-10] MEDS: PHENobarbitaL sodium 130 MG/ML IM ONCE 294 MG IM (21:07)
--- NOTE | 2022-11-10 21:07 | PM.IMHP ---
History of Present Illness Date of Service: 11/10/22 Attending physician on admission: Celina Blunt Chief Complaint: Alcohol withdrawal Pt is a 62-year-old female with a PMH significant for?alcohol use disorder who presents to the ED intoxicated and with SI. Upon presentation patient initially stated that she had been heavily drinking the past few days and felt like killing herself. Patient was placed with a sitter and was awaiting crisis evaluation when she asked for assistance going to the bathroom. On her way out of the bathroom patient had a full-blown alcohol withdrawal seizure. Patient was immediately placed on a gurney and was incontinent of urine and feces. Patient did not bite her tongue, did not fall, and did not strike her head. 2 mg of IM Ativan were administered, and patient was started on phenobarb protocol for alcohol withdrawal. Upon interview, patient was somnolent and at first arousable and capable of answering questions, but soon fell asleep and no longer responsive to inquiries. In the ED patient was afebrile. Labs were were largely unremarkable, except for ethyl alcohol level of 351. Pt will be admitted to the hospital on telemetry and treated for alcohol withdrawal. Review of Systems Review of Systems: Unable to obtain due to patient's mentation [facility] Medical History Alcoholism Social History Household Members: None Housing: Apartment Do you presently have visiting nurse or other home services: No Patient Tobacco Use Status: Never used Tobacco Use of substances other than those prescribed or required for medical reasons: Yes Substance Use Type: Marijuana Substance Use Frequency: Occasionally Currently Displaying Signs/Symptoms of Drug Intoxication Withdrawal: No Have you been hit, kicked, punched, or otherwise hurt by someone within the past year? If so, by whom?: No Do you feel safe in your current relationship?: Yes Is there a partner from a previous relationship who is making you feel unsafe now?: No Are you made to feel afraid or neglected: No Advance Directives: No Advance Directives Information Provided: Yes Do you have thoughts of harming others: None Do you have a plan to hurt others: No Plan Recently lost weight without trying: Unsure How much weight loss: Unsure Nutrition Risks: No Nutritional Risk Patient : No : No Poor oral hygiene: No Meds Allergies Allergy/AdvReac Type Severity Reaction Status Date / Time No Known Allergies Allergy Verified 10/02/21 12:49 Active Medications: Current Medications Pharmacy Consult (Consult Rx Etoh Phenob Im/Po) 1 each MISCELLANE ONCE PRN; Protocol PRN Reason: Consult order Phenobarbital (Phenobarbital 15 Mg Tablet) 45 mg PO BID [facility] Stop: 11/12/22 21:01 Phenobarbital (Phenobarbital 30 Mg Tablet) 30 mg PO BID [facility] Stop: 11/14/22 21:01 Phenobarbital (Phenobarbital 15 Mg Tablet) 15 mg PO DAILY [facility] Stop: 11/16/22 09:01 Phenobarbital Sodium (Phenobarbital Sodium 130 Mg/Ml Vial Im Q3hx2) 220 mg IM Q3H [facility] Stop: 11/11/22 03:01 Physical Exam Vital Signs and Narrative: Vital Signs: Last Vital Signs Temp 97.7 F 11/10/22 20:00 Pulse 66 11/10/22 20:40 Resp 12 11/10/22 20:40 BP 98/55 L 11/10/22 20:40 Pulse Ox 95 11/10/22 20:40 O2 Del Method 11/10/22 20:40 BMI result Body Mass Index 20.5 Difficult to obtain due to patient's somnolence and mentation General: Somnolent, initially arousable and answering questions with 1-2 words, but soon fell asleep. In no acute distress Resp: CTA bilaterally CVS: S1, S2, RRR GI: NT, no distention Skin: No rash Extremities: No edema Results Labs 11/10/22 09:48 11/10/22 09:48 Labs: Laboratory Results - last 24 hr 11/10/22 11/10/22 11/10/22 09:48 09:48 10:17 MCV 85.9 MCH 28.6 MCHC 33.3 RDW 17.2 H Plt Count 447 H MPV 8.5 L Immature Gran % (Auto) 0.2 Neut % (Auto) 33.5 L Lymph % (Auto) 53.0 H Mitchell % (Auto) 11.5 H Eos % (Auto) 0.9 Baso % (Auto) 0.9 Lymph # (Auto) 2.4 Mitchell # (Auto) 0.5 Eos # (Auto) 0.0 Baso # (Auto) 0.0 Abs Immat Gran (auto) 0.01 Absolute Neuts (auto) 1.5 L Absolute Nucleated RBC 0.000 Nucleated RBC % (auto) 0.0 Anion Gap 14 Estim Creat Clear Calc 85.0 Estimated GFR > 60 Random Glucose 93 Calcium 9.0 Total Bilirubin 0.2 AST 26 ALT 17 Alkaline Phosphatase 92 Total Protein 7.0 Albumin 4.2 Urine Color Yellow Urine Appearance Clear Urine pH 6.0 Ur Specific Gladwin <= 1.005 Urine Protein Negative Urine Glucose (UA) Negative Urine Ketones Negative Urine Blood Negative Urine Nitrite Negative Ur Leukocyte Esterase Trace H Urine RBC 0-2 Urine WBC 0-5 Ur Squamous Epith Cells 0-2 Urine Bacteria None Seen Hyaline Casts 0-2 Salicylates < 5.0 L Urine Opiates Screen Urine Fentanyl Screen Acetaminophen < 17 Ur Barbiturates Screen Ur Phencyclidine Scrn Ur Amphetamines Screen U Benzodiazepines Scrn Urine Cocaine Screen U Marijuana (THC) Screen Ethyl Alcohol 351 H* 11/10/22 10:17 MCV MCH MCHC RDW Plt Count MPV Immature Gran % (Auto) Neut % (Auto) Lymph % (Auto) Mitchell % (Auto) Eos % (Auto) Baso % (Auto) Lymph # (Auto) Mitchell # (Auto) Eos # (Auto) Baso # (Auto) Abs Immat Gran (auto) Absolute Neuts (auto) Absolute Nucleated RBC Nucleated RBC % (auto) Anion Gap Estim Creat Clear Calc Estimated GFR Random Glucose Calcium Total Bilirubin AST ALT Alkaline Phosphatase Total Protein Albumin Urine Color Urine Appearance Urine pH Ur Specific Gladwin Urine Protein Urine Glucose (UA) Urine Ketones Urine Blood Urine Nitrite Ur Leukocyte Esterase Urine RBC Urine WBC Ur Squamous Epith Cells Urine Bacteria Hyaline Casts Salicylates Urine Opiates Screen Not Detected Urine Fentanyl Screen Not Detected Acetaminophen Ur Barbiturates Screen Not Detected Ur Phencyclidine Scrn Not Detected Ur Amphetamines Screen Not Detected U Benzodiazepines Scrn Not Detected Urine Cocaine Screen Not Detected U Marijuana (THC) Screen POSITIVE H Ethyl Alcohol Assessment and Plan (1) Alcoholic intoxication: Status: Acute (2) Suicidal ideation: Status: Acute (3) Alcohol withdrawal seizure: Status: Acute Plan Pt is a 62-year-old female with a PMH significant for?alcohol use disorder who presents to the ED intoxicated and with SI. In ED pt had a withdrawal seizure. Patient admitted to the hospital on telemetry treatment of alcohol withdrawal. Alcohol withdrawal Patient had full-blown alcohol withdrawal seizure in the ED, did not fall, did not strike head Patient received 2 mg IV Ativan in ED Phenobarbital protocol Folic acid, thiamine Seizure precautions Monitor lytes CIWA scale SI Care team consult Sitter Full Code Attending:?Dr. Blunt DVT Prophylaxis: Lovenox Pt will require a hospitalization of at least two nights for treatment of?alcohol withdrawal with phenobarbital protocol. Time Spent With Patient Time: Total time managing care of this patient today ____ minutes. Quality Stroke Does the patient have a stroke diagnosis?: No VTE Prior VTE?: No VTE Risk Level:: Medical - moderate - high VTE Device Contraindication: Treatment Not Indicated VTE Drug Contraindication: N/A - Med Ordered
[2022-11-10 22:30] LABS: COVID-19 Test Negative (Negative); IDNOW Serial# BCCEAD1C
[2022-11-10] MEDS: Enoxaparin Sodium 40 MG/0.4 ML SYRINGE SUBCUT (23:02)
[2022-11-11] VITALS (7 sets, daily range): BP systolic 98–113; BP diastolic 64–74; PULSE 77–90; RESP 14–20; TEMP 35.9–36.7; O2SAT 92–96; BMI 21.1
[2022-11-11] MEDS: PHENobarbitaL sodium 130 MG/ML VIAL IM Q3Hx2 220 MG IM ×2 (00:39→03:48)
[2022-11-11] MEDS: 0.9 % Sodium Chloride Flush 3 ML SYRINGE IVFLUSH ×4 (00:40→21:22)
[2022-11-11 06:10] LABS: Anion Gap 15 (12-20); Blood Urea Nitrogen 11 mg/dL (9-16); Calcium 9.5 mg/dL (8.4-10.2); Carbon Dioxide 22 mmol/L (22-29); Chloride 106 mmol/L (96-108); Creatinine Clr Calc Pharmacy 90.1; Estimated Glomerular Filt Rate > 60; Glucose Random 84 mg/dL (60-115); Potassium 4.3 mmol/L (3.3-5.1); Sodium 139 mmol/L (135-145)
[2022-11-11] MEDS: Folic Acid 1 MG TABLET PO (08:24)
[2022-11-11] MEDS: Thiamine HCL 100 MG TABLET PO (08:24)
[2022-11-11] MEDS: PHENobarbitaL 15 MG TABLET 45 MG PO ×2 (08:25→21:20)
--- NOTE | 2022-11-11 09:42 | PHA.MEDREC ---
Pharmacy Consult ? Medication Reconciliation Pharmacy has completed the medication reconciliation.
--- NOTE | 2022-11-11 11:04 | MHC.CM.PN ---
CM attempted to meet with Patient at bedside but she was not easily awoken; CM spoke with Daughter/Elissa at her listed #. Patient lives with a Roommate and required no DME [employer]. Home self care vs Recovery Team intervention (ETOH) VS IPLOC(SI) appears to be the tentative plan and CM has initiated and will follow for dc planning. Patient's PCP is from [facility] (unsure of name) and she is fully Covid vageovanni'd.
--- NOTE | 2022-11-11 13:10 | HO.PM.IMPN ---
Subjective Subjective Date of Service: 11/12/22 Interval History: Alcohol withdrawal Review of Systems Still very anxious and tremulous. Denies any chest pain or shortness of breath or abdominal pain or fever chills Physical Exam Vital Signs: Vital Signs: Last Vital Signs Temp 97.9 F 11/11/22 11:28 Pulse 90 11/11/22 11:28 Resp 18 11/11/22 11:28 BP 98/67 11/11/22 11:28 Pulse Ox 94 11/11/22 11:28 O2 Del Method 11/11/22 11:28 BMI result Body Mass Index 21.1 Appearance: Alert.? Oriented X3.?anxious and tramulous . cvs: rrr, [id number] , no murmur res: clear to auscultation ,no rhonchii or wheezing abd: no rebound or guarding ,nt, bs present. ext pulses present , no cyanosis . neuro: axo3 , nonfocal. Objective Data Active Medications Acetaminophen (Acetaminophen 325 Mg Tablet) 650 mg PO Q6H PRN PRN Reason: Pain, Mild (Pain Scale 1-3) Docusate Sodium (Docusate Sodium 100 Mg Capsule) 100 mg PO DAILY PRN PRN Reason: Constipation Enoxaparin Sodium (Enoxaparin Sodium 40 Mg/0.4 Ml Syringe) 40 mg SUBCUT Q24H [facility] Last Admin: 11/10/22 23:02 Dose: 40 mg Documented By: MOSES Folic Acid (Folic Acid 1 Mg Tablet) 1 mg PO DAILY [facility] Last Admin: 11/11/22 08:24 Dose: 1 mg Documented By: MARIOLA Ondansetron HCl (Ondansetron Hcl 4 Mg/2 Ml Vial) 4 mg IVPUSH Q8H PRN PRN Reason: Nausea and Vomiting Pharmacy Consult (Consult Rx Etoh Phenob Im/Po) 1 each MISCELLANE ONCE PRN; Protocol PRN Reason: Consult order Phenobarbital (Phenobarbital 15 Mg Tablet) 45 mg PO BID [facility] Stop: 11/12/22 21:01 Last Admin: 11/11/22 08:25 Dose: 45 mg Documented By: MARIOLA Phenobarbital (Phenobarbital 30 Mg Tablet) 30 mg PO BID [facility] Stop: 11/14/22 21:01 Phenobarbital (Phenobarbital 15 Mg Tablet) 15 mg PO DAILY [facility] Stop: 11/16/22 09:01 Sodium Chloride (0.9 % Sodium Chloride Flush 3 Ml Syringe) 3 ml IVFLUSH QSHIFT [facility] Last Admin: 11/11/22 08:25 Dose: 3 ml Documented By: MARIOLA Thiamine HCl (Thiamine Hcl 100 Mg Tablet) 100 mg PO DAILY [facility] Last Admin: 11/11/22 08:24 Dose: 100 mg Documented By: MARIOLA Labs 11/10/22 09:48 11/11/22 05:38 Labs: Laboratory Results - last 24 hr 11/10/22 11/11/22 21:39 05:38 Anion Gap 15 Estim Creat Clear Calc 90.1 Estimated GFR > 60 Random Glucose 84 Calcium 9.5 Magnesium 2.0 COVID-19 (ALFRED) Negative COVID-19 Clin Com See Note Assessment and Plan (1) Alcoholic intoxication: Status: Acute (2) Suicidal ideation: Status: Acute (3) Alcohol withdrawal seizure: Status: Acute Plan 62-year-old female with a PMH significant for?alcohol use disorder who presents to the ED intoxicated and with SI. In ED pt had a withdrawal seizure.? Patient admitted to the hospital on telemetry treatment of alcohol withdrawal. Alcohol withdrawal Patient had full-blown alcohol withdrawal seizure in the ED, did not fall, did not strike head Patient received 2 mg IV Ativan in ED Phenobarbital protocol Folic acid, thiamine Seizure precautions Monitor lytes CIWA scale SI Care team consult Sitter will need bhn clearence once mediclaly clear. DVT Prophylaxis: Lovenox inpatient need : treatment of?alcohol withdrawal with phenobarbital protocol. Time Spent With Patient Time: Total time managing care of this patient today ____ minutes. Quality Stroke Does the patient have a stroke diagnosis?: No VTE Prior VTE?: No VTE Risk Level:: Medical - moderate - high VTE Device Contraindication: Treatment Not Indicated VTE Drug Contraindication: N/A - Med Ordered
--- NOTE | 2022-11-11 15:00 | PC.NURSE ---
Assumed care of patient at this time.
[2022-11-11] MEDS: Enoxaparin Sodium 40 MG/0.4 ML SYRINGE SUBCUT (21:20)
[2022-11-12] VITALS (7 sets, daily range): BP systolic 92–139; BP diastolic 60–79; PULSE 70–84; RESP 16–20; TEMP 36.4–36.8; O2SAT 93–98
--- NOTE | 2022-11-12 06:18 | PC.NURSE ---
Patient slept most of the shift, offered no complaints. 1:1 sitter at bedside for safety.
--- NOTE | 2022-11-12 08:21 | HO.PM.IMPN ---
Subjective Subjective Date of Service: 11/12/22 Interval History: alcohol withdrawals, si Review of Systems still tramulous ,anxious Denies any chest pain or shortness of breath or abdominal pain or fever or chills. Physical Exam Vital Signs: Vital Signs: Last Vital Signs Temp 97.9 F 11/12/22 07:15 Pulse 71 11/12/22 07:15 Resp 18 11/12/22 07:15 BP 106/68 11/12/22 07:15 Pulse Ox 96 11/12/22 07:15 O2 Del Method 11/12/22 07:15 BMI result Body Mass Index 21.1 ? Appearance: Alert.? Oriented X3.?anxious and tramulous . cvs: rrr, [id number] , no murmur res: clear to auscultation ,no rhonchii or wheezing abd: no rebound or guarding ,nt, bs present. ext pulses present , no cyanosis . neuro: axo3 , nonfocal. Objective Data Active Medications Acetaminophen (Acetaminophen 325 Mg Tablet) 650 mg PO Q6H PRN PRN Reason: Pain, Mild (Pain Scale 1-3) Docusate Sodium (Docusate Sodium 100 Mg Capsule) 100 mg PO DAILY PRN PRN Reason: Constipation Enoxaparin Sodium (Enoxaparin Sodium 40 Mg/0.4 Ml Syringe) 40 mg SUBCUT Q24H [facility] Last Admin: 11/11/22 21:20 Dose: 40 mg Documented By: JHONY Folic Acid (Folic Acid 1 Mg Tablet) 1 mg PO DAILY [facility] Last Admin: 11/11/22 08:24 Dose: 1 mg Documented By: MARIOLA Ondansetron HCl (Ondansetron Hcl 4 Mg/2 Ml Vial) 4 mg IVPUSH Q8H PRN PRN Reason: Nausea and Vomiting Pharmacy Consult (Consult Rx Etoh Phenob Im/Po) 1 each MISCELLANE ONCE PRN; Protocol PRN Reason: Consult order Phenobarbital (Phenobarbital 15 Mg Tablet) 45 mg PO BID [facility] Stop: 11/12/22 21:01 Last Admin: 11/11/22 21:20 Dose: 45 mg Documented By: JHONY Phenobarbital (Phenobarbital 30 Mg Tablet) 30 mg PO BID [facility] Stop: 11/14/22 21:01 Phenobarbital (Phenobarbital 15 Mg Tablet) 15 mg PO DAILY [facility] Stop: 11/16/22 09:01 Sodium Chloride (0.9 % Sodium Chloride Flush 3 Ml Syringe) 3 ml IVFLUSH QSHIFT [facility] Last Admin: 11/11/22 21:22 Dose: 3 ml Documented By: JHONY Thiamine HCl (Thiamine Hcl 100 Mg Tablet) 100 mg PO DAILY [facility] Last Admin: 11/11/22 08:24 Dose: 100 mg Documented By: WRIGHTS Labs 11/10/22 09:48 11/11/22 05:38 Assessment and Plan (1) Alcoholic intoxication: Status: Acute (2) Suicidal ideation: Status: Acute (3) Alcohol withdrawal seizure: Status: Acute Plan 62-year-old female with a PMH significant for?alcohol use disorder who presents to the ED intoxicated and with SI. In ED pt had a withdrawal seizure.? Patient admitted to the hospital on telemetry treatment of alcohol withdrawal. Alcohol withdrawal Patient had full-blown alcohol withdrawal seizure in the ED, did not fall, did not strike head Patient received 2 mg IV Ativan in ED. CIWA scale,Seizure precautions Phenobarbital protocol,Folic acid, thiamine,added another dose of im phenobarbital. Monitor lytes SI Care team consult Sitter will need bhn clearence once mediclaly clear. DVT Prophylaxis: Lovenox inpatient need : treatment of?alcohol withdrawal with phenobarbital protocol, ciwa moniterin. Time Spent With Patient Time: Total time managing care of this patient today ____ minutes. Quality Stroke Does the patient have a stroke diagnosis?: No VTE Prior VTE?: No VTE Risk Level:: Medical - moderate - high VTE Device Contraindication: Treatment Not Indicated VTE Drug Contraindication: N/A - Med Ordered
[2022-11-12] MEDS: 0.9 % Sodium Chloride Flush 3 ML SYRINGE IVFLUSH ×2 (08:35→16:19)
[2022-11-12] MEDS: PHENobarbitaL 15 MG TABLET 45 MG PO ×2 (08:35→21:21)
[2022-11-12] MEDS: Thiamine HCL 100 MG TABLET PO (08:36)
[2022-11-12] MEDS: Folic Acid 1 MG TABLET PO (08:36)
[2022-11-12] MEDS: PHENobarbitaL sodium 130 MG/ML VIAL 65 MG IM (10:56)
[2022-11-12] MEDS: hydrOXYzine HCL 25 MG TABLET PO ×2 (14:11→21:21)
[2022-11-12] MEDS: Enoxaparin Sodium 40 MG/0.4 ML SYRINGE SUBCUT (21:21)
[2022-11-13] MEDS: 0.9 % Sodium Chloride Flush 3 ML SYRINGE IVFLUSH ×3 (00:18→16:45)
[2022-11-13 03:04] VITALS: BP 98/61; PULSE 74; RESP 14; TEMP 36.7; O2SAT 96
[2022-11-13 07:45] VITALS: BP 127/63; PULSE 91; RESP 20; TEMP 36.6; O2SAT 98
[2022-11-13] MEDS: Folic Acid 1 MG TABLET PO (08:22)
[2022-11-13] MEDS: Thiamine HCL 100 MG TABLET PO (08:22)
[2022-11-13] MEDS: PHENobarbitaL 30 MG TABLET PO ×2 (08:22→21:10)
--- NOTE | 2022-11-13 10:49 | MHC.CM.PN ---
Per MD rounds Patient needs to be seen by the Careteam today for level of care. The Recovery team will see the patient after the Careteam consult. Patient states that she is interested in a recovery program at discharge. DP To be determined by Careteam vs Home with resources provided by the Recovery nurse. She will arrange for transportation home.
[2022-11-13 11:00] VITALS: BP 118/68; PULSE 69; RESP 20; TEMP 36.3; O2SAT 99
--- NOTE | 2022-11-13 13:28 | HO.PM.IMPN ---
Subjective Subjective Date of Service: 11/13/22 Interval History: alcohol withdrawals, si Review of Systems still tramulous ,anxious Denies any chest pain or shortness of breath or abdominal pain or fever or chills. Physical Exam Vital Signs: Vital Signs: Last Vital Signs Temp 97.4 F 11/13/22 11:00 Pulse 69 11/13/22 11:00 Resp 20 11/13/22 11:00 BP 118/68 11/13/22 11:00 Pulse Ox 99 11/13/22 11:00 O2 Del Method 11/13/22 11:00 BMI result Body Mass Index 21.1 Appearance: Alert.? Oriented X3.?anxious and tramulous . cvs: rrr, [id number] , no murmur res: clear to auscultation ,no rhonchii or wheezing abd: no rebound or guarding ,nt, bs present. ext pulses present , no cyanosis . neuro: axo3 , nonfocal. Objective Data Active Medications Acetaminophen (Acetaminophen 325 Mg Tablet) 650 mg PO Q6H PRN PRN Reason: Pain, Mild (Pain Scale 1-3) Docusate Sodium (Docusate Sodium 100 Mg Capsule) 100 mg PO DAILY PRN PRN Reason: Constipation Enoxaparin Sodium (Enoxaparin Sodium 40 Mg/0.4 Ml Syringe) 40 mg SUBCUT Q24H [facility] Last Admin: 11/12/22 21:21 Dose: 40 mg Documented By: CUCO Folic Acid (Folic Acid 1 Mg Tablet) 1 mg PO DAILY [facility] Last Admin: 11/13/22 08:22 Dose: 1 mg Documented By: DIOMEDES Hydroxyzine HCl (Hydroxyzine Hcl 25 Mg Tablet) 25 mg PO Q8H PRN PRN Reason: Anxiety Ondansetron HCl (Ondansetron Hcl 4 Mg/2 Ml Vial) 4 mg IVPUSH Q8H PRN PRN Reason: Nausea and Vomiting Pharmacy Consult (Consult Rx Etoh Phenob Im/Po) 1 each MISCELLANE ONCE PRN; Protocol PRN Reason: Consult order Phenobarbital (Phenobarbital 30 Mg Tablet) 30 mg PO BID [facility] Stop: 11/14/22 21:01 Last Admin: 11/13/22 08:22 Dose: 30 mg Documented By: DIOMEDES Phenobarbital (Phenobarbital 15 Mg Tablet) 15 mg PO DAILY [facility] Stop: 11/16/22 09:01 Sodium Chloride (0.9 % Sodium Chloride Flush 3 Ml Syringe) 3 ml IVFLUSH QSHIFT [facility] Last Admin: 11/13/22 08:22 Dose: 3 ml Documented By: DIOMEDES Thiamine HCl (Thiamine Hcl 100 Mg Tablet) 100 mg PO DAILY [facility] Last Admin: 11/13/22 08:22 Dose: 100 mg Documented By: DIOMEDES Labs 11/10/22 09:48 11/11/22 05:38 Assessment and Plan (1) Alcoholic intoxication: Status: Acute (2) Suicidal ideation: Status: Acute (3) Alcohol withdrawal seizure: Status: Acute Plan 62-year-old female with a PMH significant for?alcohol use disorder who presents to the ED intoxicated and with SI. In ED pt had a withdrawal seizure.? Patient admitted to the hospital on telemetry treatment of alcohol withdrawal. Alcohol withdrawal Patient had full-blown alcohol withdrawal seizure in the ED, did not fall, did not strike head Patient received 2 mg IV Ativan in ED. CIWA scale,Seizure precautions Phenobarbital protocol,Folic acid, thiamine,added another dose of im phenobarbital. Monitor lytes added atarax for anxiety,psych eval also addiction eval for alcohol . SI Care team consult Sitter will need bhn clearence once mediclaly clear. DVT Prophylaxis: Lovenox inpatient need : treatment of?alcohol withdrawal with phenobarbital protocol, ciwa moniterin. Time Spent With Patient Time: Total time managing care of this patient today ____ minutes. Quality Stroke Does the patient have a stroke diagnosis?: No VTE Prior VTE?: No VTE Risk Level:: Medical - moderate - high VTE Device Contraindication: Treatment Not Indicated VTE Drug Contraindication: N/A - Med Ordered
[2022-11-13 15:56] VITALS: BP 120/81; PULSE 79; RESP 15; TEMP 36.1; O2SAT 97
--- NOTE | 2022-11-13 16:00 | HO.ADDICT_ITS ---
History of Present Illness Date of Service: 11/13/2022 Chief Complaint: Alcohol Withdrawal Reason for Consult: alcohol use disorder Sources of Information: patient interviewed and chart reviewed HPI Narrative: Patient is a 62 year old female currently medically admitted following alcohol withdrawal seizure. She also reportedly stated that she was planning to jump off a bridge, so she has a patient observer in her room. Patient seen in room 485, awake, alert, engaged in interview. I've accepted that I am bipolar and I need help, I can't keep doing this . Patient reports that she has been drinking alcohol since the age of 17, with several periods in recovery, including 10 years at one time. She reports that she began drinking heavily again about a year ago, and this summer was particularly challenging. She states that she had several episodes of spending large amounts of money, risky excursions , several sexual partners. She is tearful recounting how alcohol is the only way she could make her mind stop racing. She denies any other substance use, aside from marijuana. She has been drinking at least a quart of vodka daily, along with Sambuca and some beers . Several ATS admissions, however denies any history of medications for AUD. She acknowledges that she was/is suicidal, she states that she can not go on drinking like she is and finding herself in dangerous situations. She states arden t she has been thinking about how to end her life. She reports several overdoses with medications as attempts to end her life. She reports several psychiatric admissions as a result of these attempts. Unclear when these occured. She has no formal supports in place--no providers. Minimal social supports, her daughter and a friend who lives in [place]. She occasionally attends AA meetings. 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 Review of Systems Psychiatric: Reports anxiety, Reports depression, Reports hopelessness, Reports anhedonia and Reports suicidal ideation Diagnostics Vital Signs (24Hr): Vital Signs - 24 hr 11/12/22 19:31 11/12/22 23:55 11/13/22 03:04 Temperature 98.2 F 97.5 F 98.1 F Pulse Rate 83 71 74 Respiratory Rate 16 16 14 Blood Pressure 118/75 92/60 98/61 Pulse Oximetry 97 97 96 Oxygen Delivery Method Room Air Room Air Room Air 11/13/22 07:45 11/13/22 11:00 11/13/22 15:56 Temperature 97.9 F 97.4 F 96.9 F Pulse Rate 91 69 79 Respiratory Rate 20 20 15 Blood Pressure 127/63 118/68 120/81 Pulse Oximetry 98 99 97 Oxygen Delivery Method Room Air Room Air Room Air BMI result Body Mass Index 21.1 Labs 11/10/22 09:48 11/11/22 05:38 Mental Status Exam Mental Status Exam Patient Appearance: Appropriate (hospital attire, very thin) Level of Consciousness: Awake and Alert Patient Behavior: Talkative, Cooperative, Anxious and Crying Mood Description: Anxious Affect Description: Anxious Speech Pattern: Pressured Thought Process: Intact Thought Content: positive for Circumstantial Judgement: Fair Medications Medications Current Medications Acetaminophen (Acetaminophen 325 Mg Tablet) 650 mg PO Q6H PRN PRN Reason: Pain, Mild (Pain Scale 1-3) Docusate Sodium (Docusate Sodium 100 Mg Capsule) 100 mg PO DAILY PRN PRN Reason: Constipation Enoxaparin Sodium (Enoxaparin Sodium 40 Mg/0.4 Ml Syringe) 40 mg SUBCUT Q24H [facility] Last Admin: 11/12/22 21:21 Dose: 40 mg Folic Acid (Folic Acid 1 Mg Tablet) 1 mg PO DAILY [facility] Last Admin: 11/13/22 08:22 Dose: 1 mg Hydroxyzine HCl (Hydroxyzine Hcl 25 Mg Tablet) 25 mg PO Q8H PRN PRN Reason: Anxiety Ondansetron HCl (Ondansetron Hcl 4 Mg/2 Ml Vial) 4 mg IVPUSH Q8H PRN PRN Reason: Nausea and Vomiting Pharmacy Consult (Consult Rx Etoh Phenob Im/Po) 1 each MISCELLANE ONCE PRN; Protocol PRN Reason: Consult order Phenobarbital (Phenobarbital 30 Mg Tablet) 30 mg PO BID [facility] Stop: 11/14/22 21:01 Last Admin: 11/13/22 08:22 Dose: 30 mg Phenobarbital (Phenobarbital 15 Mg Tablet) 15 mg PO DAILY [facility] Stop: 11/16/22 09:01 Sodium Chloride (0.9 % Sodium Chloride Flush 3 Ml Syringe) 3 ml IVFLUSH QSHIFT [facility] Last Admin: 11/13/22 08:22 Dose: 3 ml Thiamine HCl (Thiamine Hcl 100 Mg Tablet) 100 mg PO DAILY [facility] Last Admin: 11/13/22 08:22 Dose: 100 mg Allergies Allergies Allergy/AdvReac Type Severity Reaction Status Date / Time No Known Allergies Allergy Verified 10/02/21 12:49 Assessment & Plan Assessment & Plan (1) Alcohol use disorder, severe, dependence: Status: Acute Code(s): F10.20 - Alcohol dependence, uncomplicated Assessment and Plan: * patient open to naltrexone trial --25mg QD for 3 days then increase to 50mg daily * once medically cleared, should have CARE team evaluation for psychiatric admission Total time managing care of this patient today _50___ minutes. PMFSH Past Medical History Medical History Alcoholism Social History Social History (Updated 11/13/22 @ 16:18 by Magaly Romeo CNP) Household Members: None Housing: Apartment Do you presently have visiting nurse or other home services: No Alcohol intake: current Alcohol intake frequency: 3 or more drinks per day Alcohol type: beer and hard liquor Patient Tobacco Use Status: Never used Tobacco Use of substances other than those prescribed or required for medical reasons: Yes Substance Use Type: Marijuana Substance Use Frequency: Daily Currently Displaying Signs/Symptoms of Drug Intoxication Withdrawal: No Have you been hit, kicked, punched, or otherwise hurt by someone within the past year? If so, by whom?: No Do you feel safe in your current relationship?: Yes Is there a partner from a previous relationship who is making you feel unsafe now?: No Are you made to feel afraid or neglected: No Advance Directives: No Advance Directives Information Provided: Yes Do you have thoughts of harming others: None Do you have a plan to hurt others: No Plan Recently lost weight without trying: Unsure How much weight loss: Unsure Nutrition Risks: No Nutritional Risk Patient : No : No Poor oral hygiene: No service: No Current occupational status: employed
[2022-11-13 19:57] VITALS: BP 128/69; PULSE 75; RESP 16; TEMP 36.4; O2SAT 97
[2022-11-13] MEDS: Enoxaparin Sodium 40 MG/0.4 ML SYRINGE SUBCUT (21:10)
[2022-11-13 23:11] VITALS: BP 104/65; PULSE 75; RESP 18; TEMP 36.4; O2SAT 96
[2022-11-14] MEDS: Melatonin 3 MG TABLET 6 MG PO (01:58)
[2022-11-14] MEDS: 0.9 % Sodium Chloride Flush 3 ML SYRINGE IVFLUSH ×2 (01:58→08:23)
[2022-11-14 07:46] VITALS: BP 113/65; PULSE 76; RESP 14; TEMP 36.6; O2SAT 98
[2022-11-14] MEDS: PHENobarbitaL 30 MG TABLET PO (08:21)
[2022-11-14] MEDS: Folic Acid 1 MG TABLET PO (08:22)
[2022-11-14] MEDS: Naltrexone HCl 50 MG TABLET 25 MG PO (08:22)
[2022-11-14] MEDS: Thiamine HCL 100 MG TABLET PO (08:22)
[2022-11-14 11:17] VITALS: BP 134/90; PULSE 83; RESP 14; TEMP 36.5; O2SAT 97
--- NOTE | 2022-11-14 12:34 | PM.DS ---
DS: Providers Provider Date of Service: 11/14/22 Date of admission: 11/10/22 21:42 Date of discharge: 11/14/22 Primary care physician: Unknown Physician Consults: 11/10/22 09:05 Consult to Care Team Stat Comment: Reason for consultation: suicidal, ETOH use 11/10/22 21:42 Consult for Sitter Routine Reason for consultation: SI 11/13/22 10:14 Addiction Medicine Routine Consulting Provider: Addiction Covering Reason for consultation: alcohol abuse Has provider been notified: No Consult to Psychiatry Routine Consulting Provider: Psych Covering Reason for consultation: severe anxiety Has provider been notified: No 11/14/22 10:42 Consult to Care Team Routine Comment: Reason for consultation: etoh, SI Attending physician on discharge: Marco A Wetzel Discharging clinician: Josefina Olvera DS: Diagnosis Discharge Diagnosis (1) Alcohol use disorder, severe, dependence: Status: Acute DS: Summary Hospital Course Hospital Course: From H&P on day of admission Pt is a 62-year-old female with a PMH significant for?alcohol use disorder who presents to the ED intoxicated and with SI.? Upon presentation patient initially stated that she had been heavily drinking the past few days and felt like killing herself.? Patient was placed with a sitter and was awaiting crisis evaluation when she asked for assistance going to the bathroom.? On her way out of the bathroom patient had a full-blown alcohol withdrawal seizure.? Patient was immediately placed on a gurney and was incontinent of urine and feces.? Patient did not bite her tongue, did not fall, and did not strike her head.? 2 mg of IM Ativan were administered, and patient was started on phenobarb protocol for alcohol withdrawal.? Upon interview, patient was somnolent and at first arousable and capable of answering questions, but soon fell asleep and no longer responsive to inquiries. In the ED patient was afebrile. Labs were were largely unremarkable, except for ethyl alcohol level of 351. Pt will be admitted to the hospital on telemetry and treated for alcohol withdrawal. Alcohol withdrawal Had alcohol withdrawal seizure in the ED, did not fall, did not strike head. received 2 mg IV Ativan in ED and was placed on phenobarbitol protocol. She was supplemented with Folic acid and thiamine. she was seen by addiction medicine team and open to naltrexone trial. started on 25 mg daily with plan to increase to 50 after 3 days. No further seizure activity. Ciwa scale low. Is reporting anxiety and depression. Seen by care team who recommended inpatient psych admission for further management as [facility] likely playing a role in alcohol intake. SI. present on admission. had 1:1 sitter for safetly. seen by care team who recommended inpatient psychiatric admission as above. Time Spent with Patient Time attestation: Total time managing care of this patient today ____ minutes. Discharge coordination time: Greater than 30 minutes Quality: Safe Use of Opioids Does Pt have an Active Cancer Diagnosis on the Problem List?: No Quality: Stroke Does the patient have a stroke diagnosis?: No Physical Exam Vital Signs: Vital Signs: Last Vital Signs Temp 97.7 F 11/14/22 11:17 Pulse 83 11/14/22 11:17 Resp 14 11/14/22 11:17 BP 134/90 H 11/14/22 11:17 Pulse Ox 97 11/14/22 11:17 O2 Del Method 11/14/22 11:17 BMI result Body Mass Index 21.1 Const: General: cooperative, comfortable, alert and awake Nutritional Appearance: thin Orientation/consciousness: patient oriented x3 Resp: Effort & Inspection: normal respiratory effort and able to speak in complete sentences Cardio: Rate: regular rate Heart sounds: S1 normal heart sound present and S2 normal heart sound present GI: Inspection: No distended Palpation (GI): Soft to palpation and nontender Neuro: General: patient oriented x3 Extrem: General: Yes no pedal edema Discharge Plan Discharge Anticipated Discharge Date/Time: 11/14/22 12:34 Patient Disposition: Xfer Psychiatric Hosp Referrals: Physician,Unknown J [Primary Care Provider] - 1 Week Discharge Medications: No Action No Known Home Meds Discharge Orders: Discharge Order (Routine); Ordered 11/14/22 Ordered By: Josefina Olvera Activity on Discharge: As tolerated Stand Alone Forms: Patient Portal Discharge page Care Plan Goals: abstinence from alcohol Health Concerns: alcohol dependence with alcohol withdrawal/alcohol withdrawal seizure Plan of Treatment: transfer to inpatient psych for management of anxiety/depression with SI Assessment: see discharge summary Discharge Date/Time: 11/14/22 15:10
[2022-11-14 13:19] LABS: Glucose, Whole Blood 112 mg/dL (60-115)
--- NOTE | 2022-11-14 13:21 | MHC.CM.PN ---
Patient will discharge to M3 today for INPT Psych admission.
== END 2022-11-14 15:10 | DRG 775 ==
LOC: HO.ED 20:48 → HO.EDOVER 21:55 → HO.IMC 22:39
PROVIDERS: Physician Assistant Medical; Admitting Provider Student in an Organized Health Care Education/Training Program; Emergency Provider Emergency Medicine; PCP Physician Assistant Medical; Visit Provider Physician Assistant Medical
DX: F10.239 Alcohol dependence with withdrawal, unspecified (principal); F10.229 Alcohol dependence with intoxication, unspecified; R45.851 Suicidal ideations; R56.9 Unspecified convulsions; Z20.822 Contact with and (suspected) exposure to COVID-19; Y90.8 Blood alcohol level of 240 mg/100 ml or more
CPT/HCPCS: 36415; 80048; 80053; 80143; 80179; 80307; 81001; 82077; 82947; 83735; 85025; 87635; 96372; 96374; 99285; J1650; J2060; J2560; S9485

== ENCOUNTER 2022-11-14 15:31 | Inpatient (IN) | payer OTHER, SELFPAY ==
[2022-11-14 15:27] VITALS: BP 142/78; PULSE 86; RESP 16; TEMP 36.7; O2SAT 98
--- NOTE | 2022-11-14 16:00 | HO.PSYADMNOT ---
HPI Date of Service: 11/14/22 Chief Complaint: SI Sources of Information: patient interviewed, chart reviewed and crisis/core team assessment reviewed HPI Subjective Notes: Soto Warning (given and shows understanding) and Conditional Voluntary Narrative: Ms. Paulson is a 62 year-old woman with hx of alcohol use disorder and MDD. Pt self presented to [facility] ED on 11/10/2022 reporting suicidal ideation in context of alcohol use. Pt had alcohol related seizure. She was medically admitted for phenobarbital withdrawal protocol, which she will complete this evening. She was given IV thiamine. In the ED her BAL was 351. On the unit, pt presents as anxious. Pt reports that when she had agreed to come to the unit she did not realized it was like this. She reports she does not feel comfortable here. She also reports she made suicidal statements when intoxicated but at this point she adamantly denies any suicidal or homicidal ideation. She reports fair sleep/appetite. No hx of VH/AH. Pt reports she is seeking mainly treatment for alcohol use disorder. Pt adamantly asking to be discharged today. Collateral information from daughter, Elissa ([phone]) who reports that pt usually will only make suicidal statement while intoxicated. Elissa reports she does not think pt is suicidal at this point and agrees that pt is being forthcoming. Elissa reports her main struggle is alcohol use. Past Psychiatric History: Inpt: one prior admission, unclear year. OP: none Suicide attempt: none Medical Evaluation Reviewed: Yes [facility] Medical History Alcoholism Family History: none Social History: Lives alone. She has a daughter Substance History: Alcohol for several years Trauma History: unknown Meds/Allergies Meds Home Medications Medication Instructions Recorded Confirmed Type No Known Home Meds 11/11/22 11/11/22 History Allergies Allergies Allergy/AdvReac Type Severity Reaction Status Date / Time No Known Allergies Allergy Verified 10/02/21 12:49 Mental Status Exam Mental Status Exam Narrative: Appearance: thin, malnourished woman, casually groomed, fair hygiene, in NAD Behavior: somewhat anxious and guarded Psychomotor: no agitation or retardation noted TP: linear TC: no signs of psychosis, wanting only OP tx for alcohol use. Mood: anxious but better Affect: congruent SI: adamantly denies HI: denies VH/AH: none Insight/judgment: fair x 2. Memory/cog: alert, oriented x 3. Assessment & Plan Assessment & Plan (1) MDD (major depressive disorder), recurrent episode, moderate: Status: Acute Code(s): F33.1 - Major depressive disorder, recurrent, moderate (2) Alcohol use disorder, severe, dependence: Status: Acute Code(s): F10.20 - Alcohol dependence, uncomplicated Plan Ms. Au is a 62 year-old woman with hx of alcohol use, MDD. She initially self presented to [facility] reporting SI in context of alchol use. BAL 351. Pt had alcohol withdrawal seizure. Admitted medically for phenobarbital withdrawal protocol, which she completed without further complications. Pt denies any SI and asks for discharge. Pt reports suicidal statement only when intoxicated, this information was verified by her daughter who is mostly concern about her alcohol use. Pt agrees to continue naltrexon and to follow up with [facility] clinic. Patient educated on: diagnosis and substance abuse Informed Consent: understands Reason for continued inpatient stay Substantial Risk for: stable for discharge Statement Statement: I have reviewed the history and physical and performed a pertinent examination on my patient. No changes have occurred unless specified. If the History and Physical was not performed prior to admission, the Hospitalist's service will be consulted for completing the admission physical. Time Spent With Patient Time: Total time managing care of this patient today __30__ minutes.
--- NOTE | 2022-11-14 16:32 | PM.PSYDC ---
DS: Providers Provider Date of Service: 11/14/22 Date of admission: 11/14/22 15:31 Primary care physician: Unknown Physician DS: Diagnosis Discharge Diagnosis (1) MDD (major depressive disorder), recurrent episode, moderate: Status: Acute (2) Alcohol use disorder, severe, dependence: Status: Acute DS: Medications Discharge Medications Home Medications: Home Medications Medication Instructions Recorded Confirmed No Known Home Meds 11/11/22 11/11/22 Mental Status Exam Mental Status Exam Narrative: Appearance: thin, malnourished woman, casually groomed, fair hygiene, in NAD Behavior: somewhat anxious and guarded Psychomotor: no agitation or retardation noted TP: linear TC: no signs of psychosis, wanting only OP tx for alcohol use. Mood: anxious but better Affect: congruent SI: adamantly denies HI: denies VH/AH: none Insight/judgment: fair x 2. Memory/cog: alert, oriented x 3. DS: Summary Hospital Course Hospital Course: HPI: Subjective Notes: Soto Warning (given and shows understanding) and Conditional Voluntary Narrative: Ms. Paulson is a 62 year-old woman with hx of alcohol use disorder and MDD. Pt self presented to [facility] ED on 11/10/2022 reporting suicidal ideation in context of alcohol use. Pt had alcohol related seizure. She was medically admitted for phenobarbital withdrawal protocol, which she will complete this evening. She was given IV thiamine. In the ED her BAL was 351. On the unit, pt presents as anxious. Pt reports that when she had agreed to come to the unit she did not realized it was like this. She reports she does not feel comfortable here. She also reports she made suicidal statements when intoxicated but at this point she adamantly denies any suicidal or homicidal ideation. She reports fair sleep/appetite. No hx of VH/AH. Pt reports she is seeking mainly treatment for alcohol use disorder. Pt adamantly asking to be discharged today. Collateral information from daughter, Elissa ([phone]) who reports that pt usually will only make suicidal statement while intoxicated. Elissa reports she does not think pt is suicidal at this point and agrees that pt is being forthcoming. Elissa reports her main struggle is alcohol use. Past Psychiatric History: Inpt: one prior admission, unclear year. OP: none Suicide attempt: none HOSPITAL COURSE Pt admitted on a CV and placed on 15 minutes checks for safety. Pt adamantly denied SI/HI. It appears she did not initally realized what CV means and after declined to stay on the unit. Given that there was no imminent safety concern, she was discharged. Time Spent with Patient Time attestation: Total time managing care of this patient today ____ minutes. Discharge Plan Discharge Anticipated Discharge Date/Time: 11/14/22 16:35 Patient Disposition: Home, Self-Care Discharge Diagnosis: MDD Alcohol use disorder Referrals: Physician,Unknown J [Primary Care Provider] - 1 Week Discharge Medications: New naltrexone 50 mg tablet 50 mg PO DAILY Qty: 30 0RF No Action No Known Home Meds Discharge Orders: Discharge Order (Routine); Ordered 11/14/22 Ordered By: Rajni Martínez Diet: Regular diet Activity on Discharge: As tolerated Stand Alone Forms: Patient Portal Discharge page Care Plan Goals: 1. Maintain mood 2. No SI/HI No signs of aggression towards self or others Health Concerns: Follow up with PCP Plan of Treatment: Take medications as prescribed Go to nearest ED or call 911 in event of emergency Assessment: Pt with anxious but stable affect. No SI/HI. No psychosis or delusions. Future oriented looking forward to see daughter and continue OP tx.
--- NOTE | 2022-11-14 16:33 | PC.NURSE ---
Becki was admitted to [facility] at 1500 from [facility] on CV for treatment of suicidality and etoh use disorder. Pt presented to ED 11/10 in alcohol withdrawal, had an etoh WD seizure and was admitted to [facility] for Phenobarbital detox. On arrival to the unit she was agitated and insisting on leaving despite having signed a CV for admission. She was uncooperative wt admission process. Mood is depressed. Affect is angry. No overt psychosis noted. Thought Process is linear. She denies Ideation, plan or intent to harm self or others. She reports fair appetite with unknown recent Recent weight change. Sleep is reportedly poor. Focus is perseverative. Substance Issues : she has an alcohol use disorder and had been drinking excessively prior to presenting at ED via ambulance on 11/10/22. Her tox screen was positive for marijuana as well. Medical Issues?include only her recent seizure in our ED. She denies current physical complaint. Becki is placed on q 15 minute Safety Checks
[2022-11-14] MEDS: PHENobarbitaL 30 MG TABLET PO (17:20)
--- NOTE | 2022-11-14 18:20 | PC.NURSE ---
Becki is discharged home in care of family this evening per Rajni Martínez's order. Pt denies ideation, plan or intent to harm self or others. She denies physical complaint.
== END 2022-11-14 18:20 | disposition home or self-care (01) | DRG 751 ==
PROVIDERS: Admitting Provider Psychiatry & Neurology Psychiatry; Visit Provider Psychiatry & Neurology Psychiatry
DX: F33.1 Major depressive disorder, recurrent, moderate (principal); R45.851 Suicidal ideations; F10.20 Alcohol dependence, uncomplicated

== ENCOUNTER 2022-11-28 17:13 | Inpatient (IN) | payer OTHER, SELFPAY ==
--- NOTE | 2022-11-28 17:19 | ED_ITS ---
HPI - Psych General Chief Complaint: ETOH/Substance Use Stated Complaint: SI Time Seen by Provider: 11/28/22 17:18 Source: patient Mode of arrival: ambulatory Limitations: other (Intoxicated) History of Present Illness HPI Narrative: 62-year-old female presents for evaluation for EtOH abuse, paranoid delusions, an inability to care for herself. Patient is brought to this facility by her granddaughter who has significant concerns about this patient's safety. Patient is intoxicated. complaint: feels depressed Onset (ago): year(s) Duration: constant History of same: Yes Relieving factors: none Exacerbating factors: alcohol Context: recent alcohol abuse Associated psychiatric symptoms: depression and delusions Associated symptoms: confusion Related Data Home Medications Medication Instructions Recorded Confirmed No Known Home Meds 11/11/22 11/28/22 Allergies Allergy/AdvReac Type Severity Reaction Status Date / Time No Known Allergies Allergy Verified 10/02/21 12:49 Review of Systems Review of Systems: Yes Unobtainable due to mental status (Intoxicated) [facility] Past Medical History Attestation statement: The following information was validated with the patient. Source: old records reviewed Medical History Alcoholism MDD (major depressive disorder), recurrent episode, moderate Social History Social History Household Members: None Housing: House Do you presently have visiting nurse or other home services: No Alcohol intake: current Alcohol intake frequency: 3 or more drinks per day Alcohol type: hard liquor Patient Tobacco Use Status: Never used Tobacco Smoked in Last 30 Days: No Use of substances other than those prescribed or required for medical reasons: No Substance Use Type: Marijuana Advance Directives: No Advance Directives Information Provided: No Nutrition Risks: No Nutritional Risk service: No Current occupational status: employed Physical Exam Vital Signs: Vital Signs: Last Vital Signs Temp 98.0 F 11/28/22 17:37 Pulse 88 11/28/22 22:05 Resp 14 11/28/22 22:05 BP 111/71 11/28/22 19:50 Pulse Ox 95 11/28/22 22:05 O2 Del Method 11/28/22 22:05 BMI result Body Mass Index 21.7 Appearance: Alert. Intoxicated. Withdrawing. Eyes: Pupils equal, round and reactive to light. Sclera nonicteric. ENT: Pharynx normal. Dry mucous members Neck: Normal inspection. Neck supple. CVS: Tachycardic heart rate and rhythm. Respiratory: No respiratory distress. Breath sounds normal. Abdomen: Soft and nontender. Skin: Skin warm and dry. Normal skin color. Extremities: Gait not assessed for safety. Neuro: No motor deficit. No sensory deficit. Cranial nerves 2-12 intact Course Course Course Narrative: 62-year-old female presents as a walk-in for alcohol abuse. She was brought in by her granddaughter. Patient has been drinking for over 5 days straight. Has not been eating solid foods. She presented to the Psychiatric Pod in the emergency department, I determined that this patient is actively withdrawing and has history of seizures. Will require higher level of care than the Psychiatric pod can give. Patient moved to the main emergency department. 17:32 18:03 discussion with care team, patient has significant risk factors, cannot be discharged home, most likely alcohol induced metabolic encephalopathy. Patient does have a court date tomorrow for DUI that occurred 2 years ago. I did update care team that family is interested in [place]. Granddaughter has significant concerns about patient's well-being, patient does have a history of overdose on Seroquel, patient has been paranoi, delusional, granddaughter reports the patient believes that patient's ex- has been sabotaging patient, granddaughter states that the patients believes are not true. Granddaughter states that patient has become worse with her paranoia and delusions. And has significant concerns for this patient's safety. 19:00 labs consistent with EtOH anemia, alcohol level 157. Will start phenobarbital protocol. Patient admitted to hospitalist service for alcohol withdrawal, metabolic encephalopathy. Consultations Consultation #1: Saud Medications Administered Generic Name Dose Route Start Last Admin Trade Name Freq PRN Reason Stop Dose Admin Enoxaparin Sodium 40 mg 11/28/22 23:00 11/28/22 23:37 Enoxaparin Sodium 40 Mg/0.4 Ml Syringe SUBCUT 40 mg Q24H ALEXANDRA Administration Sodium Chloride 3 ml 11/29/22 00:00 11/28/22 23:40 0.9 % Sodium Chloride Flush 3 Ml Syringe IVFLUSH Not Given QSHIFT ALEXANDRA Discontinued Medications Generic Name Dose Route Start Last Admin Trade Name Freq PRN Reason Stop Dose Admin Enoxaparin Sodium 40 mg 11/28/22 21:00 11/28/22 21:53 Enoxaparin Sodium 40 Mg/0.4 Ml Syringe SUBCUT Not Given Q24H [facility] Sodium Chloride 1,000 mls @ 999 mls/hr 11/28/22 17:30 11/28/22 19:14 Ns IVCONT 11/28/22 18:30 Infused .Q1H1M ALEXANDRA Infusion Thiamine HCl 100 mg/ Sodium 101 mls @ 202 mls/hr 11/28/22 17:29 11/28/22 18:47 Chloride IV 11/28/22 17:58 Infused ONCE ONE Infusion Folic Acid 1 mg/ Sodium 50.2 mls @ 100.4 mls/hr 11/28/22 17:29 11/28/22 19:30 Chloride IV 11/28/22 17:58 Infused ONCE ONE Infusion Lorazepam 2 mg 11/28/22 17:29 11/28/22 18:16 Lorazepam 2 Mg/Ml Vial IVPUSH 11/28/22 17:30 2 mg ONCE ONE Administration Lorazepam 1 mg 11/28/22 19:01 11/28/22 19:25 Lorazepam 2 Mg/Ml Vial IVPUSH 11/28/22 19:02 1 mg STAT STA Administration Phenobarbital Sodium 285 mg 11/28/22 20:00 11/28/22 19:58 Phenobarbital Sodium 130 Mg/Ml Im Once IM 11/28/22 20:01 285 mg ONCE@2000 ALEXANDRA Administration Phenobarbital Sodium 213 mg 11/28/22 23:00 11/28/22 23:36 Phenobarbital Sodium 130 Mg/Ml Vial Im Q3hx2 IM 11/29/22 02:01 213 mg 0200,2300 ALEXANDRA Administration Medical Decision Making Differential Diagnosis Differential Diagnoses: The differential diagnosis associated with the presentation includes Metabolic encephalopathy, depression, paranoid delusions Admission/Observation Consideration of admission/observation: Escalation of care including admission/observation considered Admitted to hospitalist service for alcohol withdrawal, possibly M5 admission for paranoid delusions and severe alcohol dependence Consult Healthcare Provider Management of the patient was discussed with: Hospitalist and Behavioral Health Provider Lab Data MDM Lab Attestation statement: I reviewed the patient's lab results. 11/28/22 18:02 11/28/22 18:02 Labs: Lab Results 11/28/22 11/28/22 11/28/22 Range/Units 18:02 18:02 18:02 WBC 7.4 (4.8-10.8) X10*3/uL RBC 3.78 L (4.20-5.50) X10*6/uL Hgb 10.8 L (12.0-16.0) g/dl Hct 33.0 L (37.0-47.0) % MCV 87.3 (80.0-98.0) fL MCH 28.6 (27.0-33.0) pg MCHC 32.7 (31.0-35.0) g/dl RDW 16.6 H (11.0-16.0) % Plt Count 526 H (160-400) X10*3/uL MPV 9.3 L (9.4-12.3) fL Immature Gran % (Auto) 0.1 (0.0-0.4) % Neut % (Auto) 32.4 L (45-73) % Lymph % (Auto) 52.5 H (20-40) % Toole % (Auto) 12.6 H (2-11) % Eos % (Auto) 1.6 (0-4) % Baso % (Auto) 0.8 (0-2) % Lymph # (Auto) 3.9 (1.2-4.9) X10*3/uL Toole # (Auto) 0.9 (0.1-1.2) X10*3/uL Eos # (Auto) 0.1 (0.0-0.4) X10*3/uL Baso # (Auto) 0.1 (0.0-0.2) X10*3/uL Abs Immat Gran (auto) 0.01 (0.00-0.03) X10*3/uL Absolute Neuts (auto) 2.4 (2.0-8.3) x10*3/uL Absolute Nucleated RBC 0.000 (0.0-0.012) X10*3/uL Nucleated RBC % (auto) 0.0 (0.0-0.2) /100WBC Sodium 137 (135-145) mmol/L Potassium 3.3 D (3.3-5.1) mmol/L Chloride 103 (96-108) mmol/L Carbon Dioxide 21 L (22-29) mmol/L Anion Gap 16 (12-20) BUN 6 L (9-16) mg/dL Creatinine 0.70 (0.5-1.4) mg/dL Estim Creat Clear Calc 80.0 Estimated GFR > 60 Random Glucose 98 (60-115) mg/dL Calcium 9.0 (8.4-10.2) mg/dL Phosphorus 3.1 (2.7-4.5) mg/dL Magnesium 1.9 (1.6-2.6) mg/dL Total Bilirubin < 0.2 (0.0-1.0) mg/dL Direct Bilirubin < 0.2 (0.0-0.5) mg/dL AST 24 (5-31) U/L ALT 15 (0-31) U/L Alkaline Phosphatase 85 (39-117) U/L Troponin I High Sens < 3.5 (<3.5-17.0) ng/L Total Protein 6.7 (6.5-8.0) g/dL Albumin 3.8 (3.5-5.0) g/dL Lipase 53 (8-78) U/L Ethyl Alcohol mg/dL Acetone, Qual Cancelled Influenza Type A (PCR) (Negative) Influenza Type B (PCR) (Negative) RSV RNA Qual (PCR) (Negative) SARS-CoV-2 RNA (RT-PCR) (Negative) 11/28/22 11/28/22 Range/Units 18:02 18:02 WBC (4.8-10.8) X10*3/uL RBC (4.20-5.50) X10*6/uL Hgb (12.0-16.0) g/dl Hct (37.0-47.0) % MCV (80.0-98.0) fL MCH (27.0-33.0) pg MCHC (31.0-35.0) g/dl RDW (11.0-16.0) % Plt Count (160-400) X10*3/uL MPV (9.4-12.3) fL Immature Gran % (Auto) (0.0-0.4) % Neut % (Auto) (45-73) % Lymph % (Auto) (20-40) % Toole % (Auto) (2-11) % Eos % (Auto) (0-4) % Baso % (Auto) (0-2) % Lymph # (Auto) (1.2-4.9) X10*3/uL Toole # (Auto) (0.1-1.2) X10*3/uL Eos # (Auto) (0.0-0.4) X10*3/uL Baso # (Auto) (0.0-0.2) X10*3/uL Abs Immat Gran (auto) (0.00-0.03) X10*3/uL Absolute Neuts (auto) (2.0-8.3) x10*3/uL Absolute Nucleated RBC (0.0-0.012) X10*3/uL Nucleated RBC % (auto) (0.0-0.2) /100WBC Sodium (135-145) mmol/L Potassium (3.3-5.1) mmol/L Chloride (96-108) mmol/L Carbon Dioxide (22-29) mmol/L Anion Gap (12-20) BUN (9-16) mg/dL Creatinine (0.5-1.4) mg/dL Estim Creat Clear Calc Estimated GFR Random Glucose (60-115) mg/dL Calcium (8.4-10.2) mg/dL Phosphorus (2.7-4.5) mg/dL Magnesium (1.6-2.6) mg/dL Total Bilirubin (0.0-1.0) mg/dL Direct Bilirubin (0.0-0.5) mg/dL AST (5-31) U/L ALT (0-31) U/L Alkaline Phosphatase (39-117) U/L Troponin I High Sens (<3.5-17.0) ng/L Total Protein (6.5-8.0) g/dL Albumin (3.5-5.0) g/dL Lipase (8-78) U/L Ethyl Alcohol 157 mg/dL Acetone, Qual Influenza Type A (PCR) NEGATIVE (Negative) Influenza Type B (PCR) NEGATIVE (Negative) RSV RNA Qual (PCR) NEGATIVE (Negative) SARS-CoV-2 RNA (RT-PCR) NEGATIVE (Negative) Independent Interpretation I performed an independent interpretation of an: EKG Interpretation: Normal sinus rhythm Normal ECG No previous ECGs available Vent. rate 87 BPM WI interval 188 ms QRS duration 72 ms QT/QTc 366/440 ms P-R-T axes 70 42 65 28-NOV-2022 18:03:46 Independent Historian Clinical information obtained from an independent historian. History obtained from or confirmed by: Other (Granddaughter) External Record Review External record reviewed: Inpatient record, Outpatient record and Prior outpatient labs Chronic Conditions Patient?s care impacted by: Other (Alcohol abuse) Social Determinants Patient?s care significantly limited by Social Determinants of Health including: Other Social Determinant of Health Discharge Plan Discharge Clinical Impression: Alcoholic intoxication, Alcohol use disorder, severe, dependence, Metabolic encephalopathy, Paranoid delusion Patient Disposition: Admitted As Inpatient Interventions: [place]acken-Suicide Risk Severity Scale Last Done: 11/28/22 18:35
--- NOTE | 2022-11-28 17:25 | ECG_ITS ---
Test Reason : ETOH ABUSE Blood Pressure : / mmHG Vent. Rate : 087 BPM Atrial Rate : 087 BPM P-R Int : 188 ms QRS Dur : 072 ms QT Int : 366 ms P-R-T Axes : 070 042 065 degrees QTc Int : 440 ms Normal sinus rhythm Normal ECG No previous ECGs available Referred By: Madelyn Love Electronically Signed By:KP RUIZ MD
[2022-11-28 17:37] VITALS: BP 130/85; PULSE 92; RESP 15; TEMP 36.7; O2SAT 97; BMI 21.7
[2022-11-28 18:06] LABS: MANUAL DIFF FLAG NO
[2022-11-28] MEDS: 0.9 % Sodium Chloride 1,000 ML 999 ML IVCONT (18:07)
[2022-11-28] MEDS: LORazepam 2 MG/ML VIAL IVPUSH (18:16)
[2022-11-28] MEDS: Thiamine HCL 100 MG in 0.9 % Sodium Chloride 100 ML 202 MG IV (18:17)
[2022-11-28 18:20] LABS: Ethanol 157 mg/dL
[2022-11-28 18:24] LABS: Alanine Aminotransferase 15 U/L (0-31); Albumin Level 3.8 g/dL (3.5-5.0); Alkaline Phosphatase 85 U/L (39-117); Anion Gap 16 (12-20); Aspartate Amino Transferase 24 U/L (5-31); Bilirubin Direct < 0.2 mg/dL (0.0-0.5); Bilirubin Total < 0.2 mg/dL (0.0-1.0); Blood Urea Nitrogen 6 mg/dL (9-16); Carbon Dioxide 21 mmol/L (22-29); Chloride 103 mmol/L (96-108); Estimated Glomerular Filt Rate > 60; Glucose Random 98 mg/dL (60-115); Lipase 53 U/L (8-78); Magnesium 1.9 mg/dL (1.6-2.6); Phosphorus 3.1 mg/dL (2.7-4.5); Potassium 3.3 mmol/L (3.3-5.1); Sodium 137 mmol/L (135-145); Total Protein 6.7 g/dL (6.5-8.0)
[2022-11-28 18:30] LABS: Troponin-I High Sensitivity < 3.5 ng/L (<3.5-17.0)
--- NOTE | 2022-11-28 18:35 | PC.NURSE ---
pt a&ox3, presents for ETOH detox, hx seizures w withdrawal, pt denies SI/HI, but endorses increasing depression, CIWA = 9, pt reporting anxiety, headache, 20G IV placed left wrist, labs drawn, pt medicated per provider order, 1L NS running, pharmacy contacted for folic acid. no new orders at this time.
[2022-11-28 18:46] LABS: Basophils Absolute Auto 0.1 X10*3/uL (0.0-0.2); Basophils Percent Auto 0.8 % (0-2); Eosinophils Absolute Auto 0.1 X10*3/uL (0.0-0.4); Eosinophils Percent Auto 1.6 % (0-4); Hemoglobin 10.8 g/dl (12.0-16.0); Imm Gran Abs Auto 0.01 X10*3/uL (0.00-0.03); Imm Gran Pct Auto 0.1 % (0.0-0.4); Lymphocytes Absolute Auto 3.9 X10*3/uL (1.2-4.9); Lymphocytes Percent Auto 52.5 % (20-40); Mean Corpuscular HGB Conc 32.7 g/dl (31.0-35.0); Mean Corpuscular Hemoglobin 28.6 pg (27.0-33.0); Mean Corpuscular Volume 87.3 fL (80.0-98.0); Mean Platelet Volume 9.3 fL (9.4-12.3); Monocytes Absolute Auto 0.9 X10*3/uL (0.1-1.2); Monocytes Percent Auto 12.6 % (2-11); Neutrophils Absolute Auto 2.4 x10*3/uL (2.0-8.3); Neutrophils Percent Auto 32.4 % (45-73); Platelet Count 526 X10*3/uL (160-400); Red Blood Count 3.78 X10*6/uL (4.20-5.50); Red Cell Distribution Width 16.6 % (11.0-16.0); White Blood Count 7.4 X10*3/uL (4.8-10.8)
[2022-11-28] MEDS: Folic Acid 1 MG in 0.9 % Sodium Chloride 50 ML 100.4 MG IV (18:47)
[2022-11-28 18:56] LABS: Influenza A PCR NEGATIVE (Negative); Influenza B PCR NEGATIVE (Negative); Resp Syncy Virus RNA Qual PCR NEGATIVE (Negative); SARS COV2 PCR INHOUSE NEGATIVE (Negative)
--- NOTE | 2022-11-28 18:57 | PC.NURSE ---
pt medicated per provider order, pt resting quietly, RR even and unlabored.
[2022-11-28] MEDS: LORazepam 2 MG/ML VIAL 1 MG IVPUSH (19:25)
--- NOTE | 2022-11-28 19:41 | P.HPHOSP_ITS ---
History of Present Illness Date of Service: 11/28/22 Chief Complaint: Alcohol use disorder This is 62-year-old female with pertinent history of major depressive disorder, alcohol use disorder who presents to the emergency department as a walk-in for alcohol detox. Patient's granddaughter stated that patient had been drinking for over 5 days straight. History obtained from chart review and ER provider. Unable to obtain any history from the patient as patient is only responding to painful stimulus at the time of my evaluation. Patient does have a history of suicidal ideation and grand-daughter reports that patient's paranoia and delusion have been worsened lately. Unable to obtain review of systems. In the emergency department patient's alcohol level was found to be 157 and she was initiated on phenobarbital protocol Review of Systems Review of Systems: Yes Unobtainable due to mental status PMFSH Medical History Alcoholism MDD (major depressive disorder), recurrent episode, moderate Pertinent family history: Unable to obtain Social History Household Members: None Housing: House Do you presently have visiting nurse or other home services: No Alcohol intake: current Alcohol intake frequency: 3 or more drinks per day Alcohol type: hard liquor Patient Tobacco Use Status: Never used Tobacco Smoked in Last 30 Days: No Use of substances other than those prescribed or required for medical reasons: No Substance Use Type: Marijuana Advance Directives: No Advance Directives Information Provided: No service: No Current occupational status: employed Meds Allergies Allergy/AdvReac Type Severity Reaction Status Date / Time No Known Allergies Allergy Verified 10/02/21 12:49 Active Medications: Current Medications Thiamine HCl 100 mg/ Sodium (Chloride) 101 mls @ 202 mls/hr IV DAILY [facility] Pharmacy Consult (Consult Rx Etoh Phenob Im/Po) 1 each MISCELLANE ONCE PRN; Protocol PRN Reason: Consult order Pharmacy Consult (Consult Rx Perform Med Rec) 1 each MISCELLANE ONCE PRN PRN Reason: Consult order Phenobarbital (Phenobarbital 15 Mg Tablet) 45 mg PO BID ALEXANDRA Stop: 11/30/22 21:01 Phenobarbital (Phenobarbital 15 Mg Tablet) 15 mg PO BID ALEXANDRA Stop: 12/02/22 21:01 Phenobarbital (Phenobarbital 15 Mg Tablet) 15 mg PO DAILY ALEXANDRA Stop: 12/04/22 09:01 Phenobarbital Sodium (Phenobarbital Sodium 130 Mg/Ml Im Once) 285 mg IM ONCE@1999 [facility] Stop: 11/28/22 20:01 Phenobarbital Sodium (Phenobarbital Sodium 130 Mg/Ml Vial Im Q3hx2) 213 mg IM 0200,2300 [facility] Stop: 11/29/22 02:01 Home Medications Medication Instructions Recorded Confirmed Last Taken Type No Known Home Meds 11/11/22 11/11/22 Unknown History Physical Exam Vital Signs and Narrative: Vital Signs: Last Vital Signs Temp 98.0 F 11/28/22 17:37 Pulse 92 11/28/22 17:37 Resp 15 11/28/22 17:37 BP 130/85 11/28/22 17:37 Pulse Ox 97 11/28/22 17:37 O2 Del Method 11/28/22 17:37 BMI result Body Mass Index 21.7 Middle-aged female lying in bed in no distress Neck supple, no JVD Regular rate and rhythm, S1-S2 heard Regular breath sounds bilaterally, no wheezing or crackles appreciated Abdomen soft nontender, no guarding, no rigidity Patient is drowsy and only responds to painful stimulus Results Labs 11/28/22 18:02 11/28/22 18:02 Labs: Laboratory Results - last 24 hr 11/28/22 11/28/22 11/28/22 18:02 18:02 18:02 MCV 87.3 MCH 28.6 MCHC 32.7 RDW 16.6 H Plt Count 526 H MPV 9.3 L Immature Gran % (Auto) 0.1 Neut % (Auto) 32.4 L Lymph % (Auto) 52.5 H Isabella % (Auto) 12.6 H Eos % (Auto) 1.6 Baso % (Auto) 0.8 Lymph # (Auto) 3.9 Isabella # (Auto) 0.9 Eos # (Auto) 0.1 Baso # (Auto) 0.1 Abs Immat Gran (auto) 0.01 Absolute Neuts (auto) 2.4 Absolute Nucleated RBC 0.000 Nucleated RBC % (auto) 0.0 Anion Gap 16 Estim Creat Clear Calc 80.0 Estimated GFR > 60 Random Glucose 98 Calcium 9.0 Phosphorus 3.1 Magnesium 1.9 Total Bilirubin < 0.2 Direct Bilirubin < 0.2 AST 24 ALT 15 Alkaline Phosphatase 85 Troponin I High Sens < 3.5 Total Protein 6.7 Albumin 3.8 Lipase 53 Ethyl Alcohol Acetone, Qual Cancelled Influenza Type A (PCR) Influenza Type B (PCR) RSV RNA Qual (PCR) SARS-CoV-2 RNA (RT-PCR) 11/28/22 11/28/22 18:02 18:02 MCV MCH MCHC RDW Plt Count MPV Immature Gran % (Auto) Neut % (Auto) Lymph % (Auto) Isabella % (Auto) Eos % (Auto) Baso % (Auto) Lymph # (Auto) Isabella # (Auto) Eos # (Auto) Baso # (Auto) Abs Immat Gran (auto) Absolute Neuts (auto) Absolute Nucleated RBC Nucleated RBC % (auto) Anion Gap Estim Creat Clear Calc Estimated GFR Random Glucose Calcium Phosphorus Magnesium Total Bilirubin Direct Bilirubin AST ALT Alkaline Phosphatase Troponin I High Sens Total Protein Albumin Lipase Ethyl Alcohol 157 Acetone, Qual Influenza Type A (PCR) NEGATIVE Influenza Type B (PCR) NEGATIVE RSV RNA Qual (PCR) NEGATIVE SARS-CoV-2 RNA (RT-PCR) NEGATIVE Assessment and Plan (1) Alcohol use disorder, severe, dependence: Status: Acute (2) MDD (major depressive disorder), recurrent episode, moderate: Status: Acute Plan This is 62-year-old female with pertinent history of major depressive disorder, alcohol use disorder who presents to the emergency department as a walk-in for alcohol detox. #. Alcohol use disorder: Initiated on phenobarb protocol, thiamine and folic acid in the ER. Does have history of alcohol withdrawal seizures. CARE team consulted. Monitor CIWA #. Acute toxic encephalopathy in the setting of above #. Major depressive disorder: Worsening delusions and paranoia as per the granddaughter. Psych consulted from the ER, appreciate assistance Med rec pending DVT prophylaxis: Lovenox 40 mg daily Regular diet Full code Admit as inpatient and will require two night minimum hospital stay for close monitoring of mentation and alcohol withdrawal Time Spent With Patient Time: Total time managing care of this patient today ____ minutes. Quality Stroke Does the patient have a stroke diagnosis?: No VTE Prior VTE?: No VTE Risk Level:: Medical - moderate - high VTE Device Contraindication: Treatment Not Indicated VTE Drug Contraindication: N/A - Med Ordered
[2022-11-28 19:50] VITALS: BP 111/71; PULSE 89; RESP 15; O2SAT 96
[2022-11-28] MEDS: PHENobarbitaL sodium 130 MG/ML IM ONCE 285 MG IM (19:58)
--- NOTE | 2022-11-28 20:06 | PC.NURSE ---
pt medicated with first dose of phenobarbital IM in right deltoid, pt tolerated well, pt incontinent of urine, cleaned, linens changed. no new order at this time.
--- NOTE | 2022-11-28 20:15 | PHA.MEDREC ---
MED REC COMPLETE, NOT ABLE TO COMMUNICATE WITH PATIENT. SPOKE TO DAUGHTER WHO THINKS NO MEDICATIONS AT THIS TIME Pharmacy Consult ? Medication Reconciliation Pharmacy has completed the medication reconciliation.
[2022-11-28 22:05] VITALS: PULSE 88; RESP 14; O2SAT 95
--- NOTE | 2022-11-28 23:02 | PC.NURSE ---
report received from MARTHA Kim Pt sleepin at this time, normal sinus on monitor, respirations even and unlabored, will administer 11pm medications shortly
[2022-11-28] MEDS: PHENobarbitaL sodium 130 MG/ML VIAL IM Q3Hx2 213 MG IM (23:36)
[2022-11-28] MEDS: Enoxaparin Sodium 40 MG/0.4 ML SYRINGE SUBCUT (23:37)
--- NOTE | 2022-11-29 00:10 | MHC.CARE ---
passenger coach driver advised to contact pt's granddaughter for guidance regarding a section 35 per request of ED provider.
[2022-11-29] MEDS: PHENobarbitaL sodium 130 MG/ML VIAL IM Q3Hx2 213 MG IM (02:15)
[2022-11-29 06:10] LABS: MANUAL DIFF FLAG NO
[2022-11-29 06:20] LABS: Basophils Absolute Auto 0.1 X10*3/uL (0.0-0.2); Basophils Percent Auto 1.1 % (0-2); Eosinophils Absolute Auto 0.2 X10*3/uL (0.0-0.4); Eosinophils Percent Auto 2.7 % (0-4); Hematocrit 32.5 % (37.0-47.0); Hemoglobin 10.8 g/dl (12.0-16.0); Lymphocytes Absolute Auto 3.1 X10*3/uL (1.2-4.9); Lymphocytes Percent Auto 55.6 % (20-40); Mean Corpuscular HGB Conc 33.2 g/dl (31.0-35.0); Mean Corpuscular Hemoglobin 28.8 pg (27.0-33.0); Mean Corpuscular Volume 86.7 fL (80.0-98.0); Mean Platelet Volume 9.3 fL (9.4-12.3); Monocytes Absolute Auto 0.7 X10*3/uL (0.1-1.2); Monocytes Percent Auto 11.8 % (2-11); Neutrophils Absolute Auto 1.6 x10*3/uL (2.0-8.3); Neutrophils Percent Auto 28.8 % (45-73); Platelet Count 487 X10*3/uL (160-400); Red Blood Count 3.75 X10*6/uL (4.20-5.50); Red Cell Distribution Width 16.8 % (11.0-16.0); White Blood Count 5.5 X10*3/uL (4.8-10.8)
[2022-11-29 06:59] LABS: Anion Gap 12 (12-20); Blood Urea Nitrogen 5 mg/dL (9-16); Calcium 8.5 mg/dL (8.4-10.2); Carbon Dioxide 22 mmol/L (22-29); Chloride 109 mmol/L (96-108); Creatinine Clr Calc Pharmacy 98.2; Estimated Glomerular Filt Rate > 60; Glucose Random 79 mg/dL (60-115); Potassium 4.4 mmol/L (3.3-5.1); Sodium 139 mmol/L (135-145)
[2022-11-29 09:32] VITALS: BP 104/79; PULSE 89; RESP 12; TEMP 36.7; O2SAT 98
[2022-11-29] MEDS: Folic Acid 1 MG TABLET PO (09:38)
[2022-11-29] MEDS: PHENobarbitaL 15 MG TABLET 45 MG PO ×2 (09:38→21:37)
[2022-11-29] MEDS: Thiamine HCL 100 MG in 0.9 % Sodium Chloride 100 ML 202 MG IV (09:39)
[2022-11-29] MEDS: 0.9 % Sodium Chloride Flush 3 ML SYRINGE IVFLUSH ×3 (09:39→21:37)
--- NOTE | 2022-11-29 11:23 | PC.NURSE ---
pt ambulated to the bathroom, slight unsteady gait, pt denies pain/nausea/headache, no visible tremor at this time
--- NOTE | 2022-11-29 11:30 | PM.PSYCN ---
History of Present Illness Date of Service: 11/29/2022 Chief Complaint: Alcohol use Reason for Consult: delusions, alcohol use Requesting physician: Mamie Nelson Discussed with referring provider: Yes Sources of Information: patient interviewed, chart reviewed and crisis/core team assessment reviewed HPI Narrative: Ms. Au is a 62 year-old woman with hx of alcohol use disorder, complications when withdrawing from alcohol. Pt brought in to [facility] by family as pt has been using alcohol and not able to care for herself. Per family, pt appeared to have delusions. BAL 157. Utox not completed in ED. Pt known to this senior technical writer through one previous admission to for SI in context of alcohol use. She was discharged on 11/14/2022 after declining residential alcohol treatment program but had agreed to do PHP. Pt seen today. She is oriented x 3. She reports drinking excessively for 5 days. He reports nausea, anxious mood, discomfort from alcohol withdrawal but no signs of altered mental status nor psychosis nor delusional content. Pt denies SI/HI. She reports she is glad she is here at [facility] as she states she has always received good care. At the moment, pt focused on managing withdrawal symptoms, not sure about what she will do next but concern that addiction has gotten to a point that she has not been able to stay in substance use treatment program. Past Psychiatric History: Inpt: one prior admission unknown year, 10/2022 OP: none Suicide attempt: none [facility] Medical History Alcoholism MDD (major depressive disorder), recurrent episode, moderate Family History: none Social History: Lives alone. She has a daughter Trauma History: unknown Diagnostics Vital Signs (24Hr): Vital Signs - 24 hr 11/28/22 17:37 11/28/22 19:50 11/28/22 22:05 Temperature 98.0 F Pulse Rate 92 89 88 Respiratory Rate 15 15 14 Blood Pressure 130/85 111/71 Pulse Oximetry 97 96 95 Oxygen Delivery Method Room Air Room Air Room Air 11/29/22 09:32 Temperature 98.1 F Pulse Rate 89 Respiratory Rate 12 Blood Pressure 104/79 Pulse Oximetry 98 Oxygen Delivery Method Room Air BMI result Body Mass Index 21.7 Labs 11/29/22 05:57 11/29/22 05:57 Labs: Laboratory Results - last 48 hr 11/28/22 11/28/22 11/28/22 18:02 18:02 18:02 WBC 7.4 RBC 3.78 L Hgb 10.8 L Hct 33.0 L MCV 87.3 MCH 28.6 MCHC 32.7 RDW 16.6 H Plt Count 526 H MPV 9.3 L Immature Gran % (Auto) 0.1 Neut % (Auto) 32.4 L Lymph % (Auto) 52.5 H [place] % (Auto) 12.6 H Eos % (Auto) 1.6 Baso % (Auto) 0.8 Lymph # (Auto) 3.9 [place] # (Auto) 0.9 Eos # (Auto) 0.1 Baso # (Auto) 0.1 Abs Immat Gran (auto) 0.01 Absolute Neuts (auto) 2.4 Absolute Nucleated RBC 0.000 Nucleated RBC % (auto) 0.0 Sodium 137 Potassium 3.3 D Chloride 103 Carbon Dioxide 21 L Anion Gap 16 BUN 6 L Creatinine 0.70 Estim Creat Clear Calc 80.0 Estimated GFR > 60 Random Glucose 98 Calcium 9.0 Phosphorus 3.1 Magnesium 1.9 Total Bilirubin < 0.2 Direct Bilirubin < 0.2 AST 24 ALT 15 Alkaline Phosphatase 85 Troponin I High Sens < 3.5 Total Protein 6.7 Albumin 3.8 Lipase 53 Ethyl Alcohol Acetone, Qual Cancelled Influenza Type A (PCR) Influenza Type B (PCR) RSV RNA Qual (PCR) SARS-CoV-2 RNA (RT-PCR) 11/28/22 11/28/22 11/29/22 18:02 18:02 05:57 WBC 5.5 RBC 3.75 L Hgb 10.8 L Hct 32.5 L MCV 86.7 MCH 28.8 MCHC 33.2 RDW 16.8 H Plt Count 487 H MPV 9.3 L Immature Gran % (Auto) 0.0 Neut % (Auto) 28.8 L Lymph % (Auto) 55.6 H [place] % (Auto) 11.8 H Eos % (Auto) 2.7 Baso % (Auto) 1.1 Lymph # (Auto) 3.1 [place] # (Auto) 0.7 Eos # (Auto) 0.2 Baso # (Auto) 0.1 Abs Immat Gran (auto) 0.00 Absolute Neuts (auto) 1.6 L Absolute Nucleated RBC 0.000 Nucleated RBC % (auto) 0.0 Sodium Potassium Chloride Carbon Dioxide Anion Gap BUN Creatinine Estim Creat Clear Calc Estimated GFR Random Glucose Calcium Phosphorus Magnesium Total Bilirubin Direct Bilirubin AST ALT Alkaline Phosphatase Troponin I High Sens Total Protein Albumin Lipase Ethyl Alcohol 157 Acetone, Qual Influenza Type A (PCR) NEGATIVE Influenza Type B (PCR) NEGATIVE RSV RNA Qual (PCR) NEGATIVE SARS-CoV-2 RNA (RT-PCR) NEGATIVE 11/29/22 05:57 WBC RBC Hgb Hct MCV MCH MCHC RDW Plt Count MPV Immature Gran % (Auto) Neut % (Auto) Lymph % (Auto) [place] % (Auto) Eos % (Auto) Baso % (Auto) Lymph # (Auto) [place] # (Auto) Eos # (Auto) Baso # (Auto) Abs Immat Gran (auto) Absolute Neuts (auto) Absolute Nucleated RBC Nucleated RBC % (auto) Sodium 139 Potassium 4.4 D Chloride 109 H Carbon Dioxide 22 Anion Gap 12 BUN 5 L Creatinine 0.57 Estim Creat Clear Calc 98.2 Estimated GFR > 60 Random Glucose 79 Calcium 8.5 Phosphorus Magnesium Total Bilirubin Direct Bilirubin AST ALT Alkaline Phosphatase Troponin I High Sens Total Protein Albumin Lipase Ethyl Alcohol Acetone, Qual Influenza Type A (PCR) Influenza Type B (PCR) RSV RNA Qual (PCR) SARS-CoV-2 RNA (RT-PCR) Mental Status Exam Mental Status Exam Narrative: Appearance: thin, malnourished woman, wearing hospital gown, poor hygiene, somewhat restless s/s to alcohol withdrawal Behavior: guarded Psychomotor: no agitation or retardation noted TP: linear TC: no signs of psychosis, but physically uncomfortable due to alcohol withdrawal Mood: anxious Affect: congruent SI: denies HI: denies VH/AH: none Delusions: no signs of delusions at this point Insight/judgment: poor x 2. Memory/cog: alert, oriented x 3. Medications Medications Current Medications Enoxaparin Sodium (Enoxaparin Sodium 40 Mg/0.4 Ml Syringe) 40 mg SUBCUT Q24H [facility] Last Admin: 11/28/22 23:37 Dose: 40 mg Folic Acid (Folic Acid 1 Mg Tablet) 1 mg PO DAILY [facility] Last Admin: 11/29/22 09:38 Dose: 1 mg Thiamine HCl 100 mg/ Sodium (Chloride) 101 mls @ 202 mls/hr IV DAILY [facility] Last Infusion: 11/29/22 10:10 Dose: Infused Ondansetron HCl (Ondansetron Hcl 4 Mg/2 Ml Vial) 4 mg IVPUSH Q6H PRN PRN Reason: nausea Pharmacy Consult (Consult Rx Etoh Phenob Im/Po) 1 each MISCELLANE ONCE PRN; Protocol PRN Reason: Consult order Pharmacy Consult (Consult Rx Perform Med Rec) 1 each MISCELLANE ONCE PRN PRN Reason: Consult order Phenobarbital (Phenobarbital 15 Mg Tablet) 45 mg PO BID [facility] Stop: 11/30/22 21:01 Last Admin: 11/29/22 09:38 Dose: 45 mg Phenobarbital (Phenobarbital 15 Mg Tablet) 15 mg PO BID [facility] Stop: 12/02/22 21:01 Phenobarbital (Phenobarbital 15 Mg Tablet) 15 mg PO DAILY [facility] Stop: 12/04/22 09:01 Sodium Chloride (0.9 % Sodium Chloride Flush 3 Ml Syringe) 3 ml IVFLUSH QSHIFT [facility] Last Admin: 11/29/22 09:39 Dose: 3 ml Allergies Allergies Allergy/AdvReac Type Severity Reaction Status Date / Time No Known Allergies Allergy Verified 10/02/21 12:49 Assessment & Plan Assessment & Plan (1) MDD (major depressive disorder), recurrent episode, moderate: Status: Acute Code(s): F33.1 - Major depressive disorder, recurrent, moderate (2) Alcohol use disorder, severe, dependence: Status: Acute Code(s): F10.20 - Alcohol dependence, uncomplicated Plan Ms. Au is a 62 year-old woman with hx of alcohol use disorder. She was brought in by family as pt not able to care forherself due to alcohol use. BAL 157. Utox not completed in ED. Per family, pt had presented with delusions. Currently, pt does not appear to have psychosis or delusional content. She denies SI/HI. She reports physical distress secondary to alcohol withdrawal. She has hx of complication with alcohol withdrawal and currently medically admitted for alcohol withdrawal on phenobarbital protocol. PLAN 1. no s/s of delusions or psychosis at this point. Continue phenobarbital protocol with thiamine. She denies SI/HI. No need for inpatient psychiatric admission at this point. 2. registration manager to guide family should they want to do section 35. 3. This information was discussed with attending Dr. Nelson. Total time managing care of this patient today ____ minutes.
--- NOTE | 2022-11-29 11:49 | HO.PM.IMPN ---
Subjective Subjective Date of Service: 11/29/22 Interval History: awake alert had breakfast, feels tired, complaining of nausea and withdrawal symptoms, denies chest pain, no palpitation, no shortness of breath,no dizziness. Review of Systems Review of Systems: Yes all other systems are reviewed and are negative Physical Exam Vital Signs: Vital Signs: Last Vital Signs Temp 98.1 F 11/29/22 09:32 Pulse 89 11/29/22 09:32 Resp 12 11/29/22 09:32 BP 104/79 11/29/22 09:32 Pulse Ox 98 11/29/22 09:32 O2 Del Method 11/29/22 09:32 BMI result Body Mass Index 21.7 Const: Other: General awake alert x3, in no acute distress. Neck supple no JVD. CVS regular rate rhythm, Respiratory lungs clear to auscultation, no respiratory distress, no wheeze, no rhonchi. Gastrointestinal abdomen soft, nontender, bowel sounds audible, no guarding , no rigidity. Extremities no edema. Neuro nonfocal ,speech clear. Skin no rash psych anxious Objective Data Active Medications Enoxaparin Sodium (Enoxaparin Sodium 40 Mg/0.4 Ml Syringe) 40 mg SUBCUT Q24H [facility] Last Admin: 11/28/22 23:37 Dose: 40 mg Documented By: AFSHAN Folic Acid (Folic Acid 1 Mg Tablet) 1 mg PO DAILY [facility] Last Admin: 11/29/22 09:38 Dose: 1 mg Documented By: KEEGAN Thiamine HCl 100 mg/ Sodium (Chloride) 101 mls @ 202 mls/hr IV DAILY [facility] Last Infusion: 11/29/22 10:10 Dose: 0 mls/hr Documented By: JHONY Ondansetron HCl (Ondansetron Hcl 4 Mg/2 Ml Vial) 4 mg IVPUSH Q6H PRN PRN Reason: nausea Pharmacy Consult (Consult Rx Etoh Phenob Im/Po) 1 each MISCELLANE ONCE PRN; Protocol PRN Reason: Consult order Pharmacy Consult (Consult Rx Perform Med Rec) 1 each MISCELLANE ONCE PRN PRN Reason: Consult order Phenobarbital (Phenobarbital 15 Mg Tablet) 45 mg PO BID [facility] Stop: 11/30/22 21:01 Last Admin: 11/29/22 09:38 Dose: 45 mg Documented By: KEEGAN Phenobarbital (Phenobarbital 15 Mg Tablet) 15 mg PO BID [facility] Stop: 12/02/22 21:01 Phenobarbital (Phenobarbital 15 Mg Tablet) 15 mg PO DAILY [facility] Stop: 12/04/22 09:01 Sodium Chloride (0.9 % Sodium Chloride Flush 3 Ml Syringe) 3 ml IVFLUSH QSHIFT [facility] Last Admin: 11/29/22 09:39 Dose: 3 ml Documented By: KEEGAN Labs 11/29/22 05:57 11/29/22 05:57 Labs: Laboratory Results - last 24 hr 11/28/22 11/28/22 11/28/22 18:02 18:02 18:02 MCV 87.3 MCH 28.6 MCHC 32.7 RDW 16.6 H Plt Count 526 H MPV 9.3 L Immature Gran % (Auto) 0.1 Neut % (Auto) 32.4 L Lymph % (Auto) 52.5 H [place] % (Auto) 12.6 H Eos % (Auto) 1.6 Baso % (Auto) 0.8 Lymph # (Auto) 3.9 [place] # (Auto) 0.9 Eos # (Auto) 0.1 Baso # (Auto) 0.1 Abs Immat Gran (auto) 0.01 Absolute Neuts (auto) 2.4 Absolute Nucleated RBC 0.000 Nucleated RBC % (auto) 0.0 Anion Gap 16 Estim Creat Clear Calc 80.0 Estimated GFR > 60 Random Glucose 98 Calcium 9.0 Phosphorus 3.1 Magnesium 1.9 Total Bilirubin < 0.2 Direct Bilirubin < 0.2 AST 24 ALT 15 Alkaline Phosphatase 85 Troponin I High Sens < 3.5 Total Protein 6.7 Albumin 3.8 Lipase 53 Ethyl Alcohol Acetone, Qual Cancelled Influenza Type A (PCR) Influenza Type B (PCR) RSV RNA Qual (PCR) SARS-CoV-2 RNA (RT-PCR) 11/28/22 11/28/22 11/29/22 18:02 18:02 05:57 MCV 86.7 MCH 28.8 MCHC 33.2 RDW 16.8 H Plt Count 487 H MPV 9.3 L Immature Gran % (Auto) 0.0 Neut % (Auto) 28.8 L Lymph % (Auto) 55.6 H [place] % (Auto) 11.8 H Eos % (Auto) 2.7 Baso % (Auto) 1.1 Lymph # (Auto) 3.1 [place] # (Auto) 0.7 Eos # (Auto) 0.2 Baso # (Auto) 0.1 Abs Immat Gran (auto) 0.00 Absolute Neuts (auto) 1.6 L Absolute Nucleated RBC 0.000 Nucleated RBC % (auto) 0.0 Anion Gap Estim Creat Clear Calc Estimated GFR Random Glucose Calcium Phosphorus Magnesium Total Bilirubin Direct Bilirubin AST ALT Alkaline Phosphatase Troponin I High Sens Total Protein Albumin Lipase Ethyl Alcohol 157 Acetone, Qual Influenza Type A (PCR) NEGATIVE Influenza Type B (PCR) NEGATIVE RSV RNA Qual (PCR) NEGATIVE SARS-CoV-2 RNA (RT-PCR) NEGATIVE 11/29/22 05:57 MCV MCH MCHC RDW Plt Count MPV Immature Gran % (Auto) Neut % (Auto) Lymph % (Auto) [place] % (Auto) Eos % (Auto) Baso % (Auto) Lymph # (Auto) [place] # (Auto) Eos # (Auto) Baso # (Auto) Abs Immat Gran (auto) Absolute Neuts (auto) Absolute Nucleated RBC Nucleated RBC % (auto) Anion Gap 12 Estim Creat Clear Calc 98.2 Estimated GFR > 60 Random Glucose 79 Calcium 8.5 Phosphorus Magnesium Total Bilirubin Direct Bilirubin AST ALT Alkaline Phosphatase Troponin I High Sens Total Protein Albumin Lipase Ethyl Alcohol Acetone, Qual Influenza Type A (PCR) Influenza Type B (PCR) RSV RNA Qual (PCR) SARS-CoV-2 RNA (RT-PCR) Assessment and Plan (1) Metabolic encephalopathy: Status: Acute Plan 62-year-old female with pertinent history of major depressive disorder, alcohol use disorder who presents to the emergency department as a walk-in for alcohol detox. #.? Alcohol use disorder/ withdrawal: patient awake alert continue phenobarb protocol, thiamine and folic acid? alcohol level 157 care team consult obtained seen by Psychiatry they agree with above treatment plan and recommend dependency case manager to guide family if they want section 35 #.? Acute toxic encephalopathy in the setting of above, resolved, check ammonia level, check UA, normal LFTs #.? Major depressive disorder: Worsening delusions and paranoia as per the granddaughter. seen by psych patient noted to have no delusions or psychosis at this point? DVT prophylaxis:? Lovenox 40 mg daily Full code patient will need continued inpatient hospitalization for alcohol abuse and withdrawal. Time Spent With Patient Time: Total time managing care of this patient today ____ minutes. Quality Stroke Does the patient have a stroke diagnosis?: No VTE Prior VTE?: No VTE Risk Level:: Medical - moderate - high VTE Device Contraindication: Treatment Not Indicated VTE Drug Contraindication: N/A - Med Ordered
[2022-11-29 12:40] VITALS: BP 108/59; PULSE 76; RESP 11; TEMP 36.7; O2SAT 96
--- NOTE | 2022-11-29 15:07 | PC.NURSE ---
report given to imc rn
--- NOTE | 2022-11-29 15:14 | MHC.CM.PN ---
Met with pt to review d/c planning needs: pt lives alone, drives and is employed. States her PCP is Delia Olmstead. Pt not forthcoming with information stating she is tired and would like to sleep. Pt will call family for transportation to home. Pt would benefit from a CARE team consult for assistance
[2022-11-29 15:26] VITALS: BP 131/67; PULSE 94; RESP 18; TEMP 36.2; O2SAT 98
[2022-11-29 19:50] VITALS: BP 115/67; PULSE 77; RESP 18; TEMP 36.3; O2SAT 97
[2022-11-29] MEDS: Enoxaparin Sodium 40 MG/0.4 ML SYRINGE SUBCUT (21:37)
[2022-11-30 03:53] LABS: Appearance Urine Clear; Color Urine Yellow; Glucose Urine UA Negative (Negative); Leukocyte Esterase Urine Small (1+) (Negative); Nitrite Urine Negative (Negative); PH 7.5 (5.0-9.0); UMIC TRIGGER UACC YES; Urine Blood Negative (Negative); Urine Ketones Negative (Negative); Urine Protein Negative (Neg-Trace)
[2022-11-30 03:58] LABS: Bacteria Urine None Seen (None Seen); Hyaline Casts Urine 0-2 /LPF (0-2); RBC Urine 0-2 /HPF (0-2); Squamous Epithelial Cell Urine 0-2 /HPF (0-2); UACC Culture Trigger YES
[2022-11-30 04:00] VITALS: BP 123/71; PULSE 68; RESP 18; TEMP 36.4; O2SAT 98
[2022-11-30 06:03] LABS: Ammonia 31 umol/L (13-55)
[2022-11-30 07:34] VITALS: BP 107/54; PULSE 78; RESP 18; TEMP 35.9; O2SAT 99
[2022-11-30] MEDS: Thiamine HCL 100 MG TABLET PO (07:40)
[2022-11-30] MEDS: Folic Acid 1 MG TABLET PO (07:40)
[2022-11-30] MEDS: PHENobarbitaL 15 MG TABLET 45 MG PO ×2 (07:41→20:21)
[2022-11-30] MEDS: 0.9 % Sodium Chloride Flush 3 ML SYRINGE IVFLUSH ×2 (07:43→23:07)
--- NOTE | 2022-11-30 11:05 | HO.PM.IMPN ---
Subjective Subjective Date of Service: 11/30/22 Interval History: feeling better this morning denies withdrawal symptoms, decrease anxiety, feeling tired, no acute events overnight, tolerating diet no nausea, no vomiting, no abdominal pain, no diarrhea, denies chest pain, no shortness of breath, no palpitations. Review of Systems Review of Systems: Yes all other systems are reviewed and are negative Physical Exam Vital Signs: Vital Signs: Last Vital Signs Temp 96.7 F L 11/30/22 07:34 Pulse 78 11/30/22 07:34 Resp 18 11/30/22 07:34 BP 107/54 L 11/30/22 07:34 Pulse Ox 99 11/30/22 07:34 O2 Del Method 11/30/22 07:34 BMI result Body Mass Index 21.7 Const: Other: General? awake alert x3, in no acute distress.? Neck? supple no JVD. CVS? regular rate rhythm, Respiratory lungs clear to auscultation, no respiratory distress, no wheeze, no rhonchi. Gastrointestinal abdomen soft, nontender, bowel sounds audible, no guarding , no rigidity. Extremities no edema. Neuro nonfocal ,speech clear. Skin no rash psych: Appropriate affect Objective Data Active Medications Enoxaparin Sodium (Enoxaparin Sodium 40 Mg/0.4 Ml Syringe) 40 mg SUBCUT Q24H [facility] Last Admin: 11/29/22 21:37 Dose: 40 mg Documented By: TK Folic Acid (Folic Acid 1 Mg Tablet) 1 mg PO DAILY [facility] Last Admin: 11/30/22 07:40 Dose: 1 mg Documented By: AZAM Hydroxyzine HCl (Hydroxyzine Hcl 25 Mg Tablet) 25 mg PO Q6H PRN PRN Reason: Anxiety Ondansetron HCl (Ondansetron Hcl 4 Mg/2 Ml Vial) 4 mg IVPUSH Q6H PRN PRN Reason: nausea Pharmacy Consult (Consult Rx Etoh Phenob Im/Po) 1 each MISCELLANE ONCE PRN; Protocol PRN Reason: Consult order Pharmacy Consult (Consult Rx Perform Med Rec) 1 each MISCELLANE ONCE PRN PRN Reason: Consult order Phenobarbital (Phenobarbital 15 Mg Tablet) 45 mg PO BID [facility] Stop: 11/30/22 21:01 Last Admin: 11/30/22 07:41 Dose: 45 mg Documented By: AZAM Phenobarbital (Phenobarbital 15 Mg Tablet) 15 mg PO BID [facility] Stop: 12/02/22 21:01 Phenobarbital (Phenobarbital 15 Mg Tablet) 15 mg PO DAILY [facility] Stop: 12/04/22 09:01 Sodium Chloride (0.9 % Sodium Chloride Flush 3 Ml Syringe) 3 ml IVFLUSH QSHIFT [facility] Last Admin: 11/30/22 07:43 Dose: 3 ml Documented By: AZAM Thiamine HCl (Thiamine Hcl 100 Mg Tablet) 100 mg PO DAILY [facility] Last Admin: 11/30/22 07:40 Dose: 100 mg Documented By: AZAM Labs 11/29/22 05:57 11/29/22 05:57 Labs: Laboratory Results - last 24 hr 11/30/22 11/30/22 03:35 05:46 Ammonia 31 Urine Color Yellow Urine Appearance Clear Urine pH 7.5 Ur Specific [place] 1.010 Urine Protein Negative Urine Glucose (UA) Negative Urine Ketones Negative Urine Blood Negative Urine Nitrite Negative Ur Leukocyte Esterase Small (1+) H Urine RBC 0-2 Urine WBC 6-10 H Ur Squamous Epith Cells 0-2 Urine Bacteria None Seen Hyaline Casts 0-2 Assessment and Plan (1) Metabolic encephalopathy: Status: Acute Plan 62-year-old female with pertinent history of major depressive disorder, alcohol use disorder who presents to the emergency department as a walk-in for alcohol detox. #.? Alcohol use disorder/ withdrawal: less anxiety, continue phenobarb protocol, thiamine and folic acid? alcohol level 157 on admission seen by care team and by Psychiatry they agree with above treatment plan and recommend family Guidance if they want section 35 #.? Acute toxic encephalopathy resolved was likely due to alcohol use, ammonia level 31, normal LFTs and UA negative. #.? Major depressive disorder: Worsening delusions and paranoia as per the granddaughter. seen by psych patient noted to have no delusions or psychosis at this point?, no intervention recommended. DVT prophylaxis:? Lovenox 40 mg daily Full code patient will need continued inpatient hospitalization for alcohol abuse and withdrawal. Time Spent With Patient Time: Total time managing care of this patient today ____ minutes. Quality Stroke Does the patient have a stroke diagnosis?: No VTE Prior VTE?: No VTE Risk Level:: Medical - moderate - high VTE Device Contraindication: Treatment Not Indicated VTE Drug Contraindication: N/A - Med Ordered
[2022-11-30 15:47] VITALS: BP 118/61; PULSE 81; RESP 18; TEMP 36.5; O2SAT 96
[2022-11-30] MEDS: hydrOXYzine HCL 25 MG TABLET PO (16:51)
[2022-11-30 19:43] VITALS: BP 102/72; PULSE 78; RESP 18; TEMP 36.4; O2SAT 96
[2022-11-30] MEDS: Enoxaparin Sodium 40 MG/0.4 ML SYRINGE SUBCUT (23:07)
[2022-12-01 03:29] VITALS: BP 112/71; PULSE 69; RESP 17; TEMP 36.2; O2SAT 96
[2022-12-01 08:00] VITALS: BP 97/69; PULSE 78; RESP 18; TEMP 36.4; O2SAT 97
[2022-12-01] MEDS: Folic Acid 1 MG TABLET PO (08:18)
[2022-12-01] MEDS: PHENobarbitaL 15 MG TABLET PO (08:18)
[2022-12-01] MEDS: 0.9 % Sodium Chloride Flush 3 ML SYRINGE IVFLUSH (08:18)
[2022-12-01] MEDS: Thiamine HCL 100 MG TABLET PO (08:18)
--- NOTE | 2022-12-01 11:25 | MHC.CM.PN ---
Addendum entered by Sandie Trevino 12/01/22 15:04: PT MET WITH RECOVERY NURSE AND HAS STATED SHE IS INTERESTED IN IOP PT WILL DC HOME TODAY AND SAYS SHE WILL FOLLOW UP ON IOP TREATMENT, INFO WAS PROVIDED BY [employer] [facility] TO PROVIDE TRANSPORT Original Note: CM INFORMED PT IS REQUESTING A REFERRAL TO [facility] INFORMED VIA [id number]
--- NOTE | 2022-12-01 13:37 | MHC.RECOVRN ---
Met with pt in 347 after t/w was notified pt interested in [facility]. Pt sitting in bed, awake, alert, easily engages in conversation. Pt reports alcohol use, 1 quart+ vodka daily. 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 Pt states My friends think 3rd shift is making my depression worse and I don't disagree. Pt continues to state I'm bipolar and I have lamotrigine at home. Pt reports alcohol use began as a teenager and has had many AUD related admissions to hospitals, ATS, CSS, TSS. Pt reports longest period of recovery was 10 years. From the 80s into the 90s. At that time pt was in a relationship and her partner did not drink, she also attended AA. Pt currently goes to a couple meetings, however states I'm not gung ho into it like when I was younger. Pt reports friends and family are encouraging her to go into residential treatment, however, pt is apprehensive due to possibility of losing employment and housing. Pt interested in outpatient treatment, specifically IOP. Educated pt regarding [facility], provided with brochure and phone number to call. Pt plans to return home and follow up in the morning. Discussed JACE, pt reports having naltrexone at home. Had only taken it 2-3 days. Pt open to restarting medication. Pt provided with t/w contact information if needed. Denies questions or concerns. Discussed with CM.
--- NOTE | 2022-12-01 14:23 | PM.DS ---
DS: Providers Provider Date of Service: 12/01/22 Date of admission: 11/28/22 19:50 Primary care physician: Pauline Olmstead PA-C Consults: 11/28/22 17:56 Consult to Care Team Stat Comment: Reason for consultation: etoh abuse, paranoia, delusions Consult to Psychiatry Stat Consulting Provider: Gilberto Arriaga Reason for consultation: ETOH abuse, paranoid, delusions, family would like Section 35 DS: Diagnosis Discharge Diagnosis (1) Metabolic encephalopathy: Status: Acute DS: Summary Hospital Course Hospital Course: Date of Service: 11/28/22 Chief Complaint: Alcohol use disorder This is 62-year-old female with pertinent history of major depressive disorder, alcohol use disorder who presents to the emergency department as a walk-in for alcohol detox.? Patient's granddaughter stated that patient had been drinking for over 5 days straight.? History obtained from chart review and ER provider.? Unable to obtain any history from the patient as patient is only responding to painful stimulus at the time of my evaluation.? Patient does have a history of suicidal ideation and grand-daughter reports that patient's paranoia and delusion have been worsened lately.? Unable to obtain review of systems.? In the emergency department patient's alcohol level was found to be 157 and she was initiated on phenobarbital protocol. hospital course 62-year-old female with pertinent history of major depressive disorder, alcohol use disorder presented to the emergency department as a walk-in for alcohol detox, patient admitted to medical floor with a diagnosis of Alcohol use disorder/ withdrawal and place on phenobarb protocol thiamine and folic acid patient evaluated by psychiatry and care team patient is interested in outpatient [facility] [place] [facility] IOP program care team provided brochure and phone number to call since patient is feeling better with no withdrawal symptoms she is being discharged home, on admission she was noted to be confused and diagnosed with acute toxic metabolic encephalopathy likely due to alcohol intoxication that is resolved patient also evaluated by Psychiatry for major depressive disorder, patient noted to have no delusion or psychosis, psych recommended no further intervention. Time Spent with Patient Time attestation: Total time managing care of this patient today ____ minutes. Discharge coordination time: Greater than 30 minutes Quality: Safe Use of Opioids Does Pt have an Active Cancer Diagnosis on the Problem List?: No Quality: Stroke Does the patient have a stroke diagnosis?: No Physical Exam Vital Signs: Vital Signs: Last Vital Signs Temp 97.6 F 12/01/22 08:00 Pulse 78 12/01/22 08:00 Resp 18 12/01/22 08:00 BP 97/69 12/01/22 08:00 Pulse Ox 97 12/01/22 08:00 O2 Del Method 12/01/22 08:00 BMI result Body Mass Index 21.7 Const: Other: General? awake alert x3, in no acute distress.? Neck? supple no JVD. CVS? regular rate rhythm, Respiratory lungs clear to auscultation, no respiratory distress, no wheeze, no rhonchi. Gastrointestinal abdomen soft, nontender, bowel sounds audible, no guarding , no rigidity. Extremities no edema. Neuro nonfocal ,speech clear. Skin no rash psych: Appropriate affect DS: Data Data Completed and Pending Completed studies during hospitalization [Text1]: Procedures Detoxification Services for Substance Abuse Treatment (11/10/22) Discharge Plan Discharge Anticipated Discharge Date/Time: 12/01/22 14:18 Patient Disposition: Home, Self-Care Discharge Diagnosis: alcohol use disorder and withdrawal acute toxic encephalopathy Referrals: Pauline Olmstead PA-C [Primary Care Provider] - 1 Week Discharge Medications: No Action No Known Home Meds Discharge Orders: Discharge Order (Routine); Ordered 12/01/22 Ordered By: Mamie Nelson Diet: Advance to usual diet Activity on Discharge: As tolerated Stand Alone Forms: Patient Portal Discharge page Care Plan Goals: strongly recommend to abstain from alcohol, care team provided information and brochure to call [facility] intensive outpatient program Health Concerns: alcohol use disorder Plan of Treatment: follow-up with primary care physician strongly recommend outpatient treatment for alcohol Assessment: as above
== END 2022-12-01 15:00 | disposition home or self-care (01) | DRG 775 ==
LOC: HO.ED 21:30 → HO.EDOVER 21:38 → HO.S3 11-29 14:27
PROVIDERS: Nurse Practitioner Family; Admitting Provider Student in an Organized Health Care Education/Training Program; Emergency Provider Emergency Medicine; PCP Physician Assistant Medical; Visit Provider Hospitalist
DX: F10.239 Alcohol dependence with withdrawal, unspecified (principal); F10.229 Alcohol dependence with intoxication, unspecified; G92.8 Other toxic encephalopathy; F33.1 Major depressive disorder, recurrent, moderate; R45.851 Suicidal ideations; Y90.6 Blood alcohol level of 120-199 mg/100 ml; Z20.822 Contact with and (suspected) exposure to COVID-19
CPT/HCPCS: 0241U; 36415; 80048; 80076; 81001; 82009; 82077; 82140; 83690; 83735; 84100; 84484; 85025; 87086; 93005; 99285; J1650; J2060; J2560; J3411

== ENCOUNTER 2022-12-18 18:20 | Emergency (ER) | payer OTHER, SELFPAY ==
[2022-12-18] VITALS (7 sets, daily range): BP systolic 77–167; BP diastolic 51–89; PULSE 20–121; RESP 15–17; TEMP 36.4–36.6; O2SAT 92–98; BMI 22.3
--- NOTE | ~2022-12-18 | XR_ITS ---
EXAMINATION: XR CHEST CLINICAL INFORMATION: Fall onto chest with pain COMPARISON: None available. TECHNIQUE: Frontal view of the chest was obtained. FINDINGS: No significant abnormality is noted involving the heart, lungs, mediastinum, bony thorax or soft tissues. XR/XR chest 1V IMPRESSION: Unremarkable examination.
--- NOTE | ~2022-12-18 | CT_ITS ---
EXAMINATION: CT head/brain wo IV con, CT cervical spine wo IV con INDICATION INFORMATION: Reason for Exam fall head strike COMPARISON: None TECHNIQUE: Separate noncontrast CT examinations of the head and cervical spine were performed. Coronal and sagittal images were created for each examination at the technologist workstation. This CT examination was performed using dose optimization techniques as appropriate, variously including the following: *Automated exposure control *Adjustment of mA and/or kV according to patient size (this includes techniques or standardized protocols for targeted exams where dose is matched to indication/reason for exam; i.e. extremities or head) *Use of iterative reconstruction technique DLP: 1042 mGy-cm FINDINGS: Head: No acute osseous or soft tissue abnormality. Left maxillary sinus mucous retention cyst. Mastoid air cells are clear. There is no evidence of acute intracranial hemorrhage or territorial infarction. No abnormal mass effect or midline shift is seen. Lopez to white matter differentiation is well preserved. No extra-axial fluid collections are identified. No hydrocephalus. No significant volume loss. There is no abnormal attenuation within the brain parenchyma. Cervical spine: Cervical spine portion of the examination is motion degraded There is no evidence of acute cervical spine fracture. Vertebral bodies remain normal in height. Alignment is maintained. Disc space heights are maintained. No pre- or paravertebral soft tissue abnormality is identified. Visualized portions of the lung apices are unremarkable. The thyroid gland is unremarkable. CT/CT cervical spine wo IV con IMPRESSION: 1. No acute intracranial abnormality. 2. Motion degraded examination of the cervical spine. Within this limitation, no evidence of acute fracture or traumatic malalignment.
--- NOTE | 2022-12-18 18:40 | ECG_ITS ---
Test Reason : TACHYCARDIA Blood Pressure : / mmHG Vent. Rate : 076 BPM Atrial Rate : 076 BPM P-R Int : 188 ms QRS Dur : 080 ms QT Int : 408 ms P-R-T Axes : 062 067 064 degrees QTc Int : 459 ms Normal sinus rhythm Normal ECG When compared with ECG of 28-NOV-2022 18:03, No significant change was found Referred By: Mira Dickey Electronically Signed By:KP RUIZ MD
[2022-12-18] MEDS: Haloperidol Lactate 5 MG/ML VIAL IM (19:06)
[2022-12-18] MEDS: LORazepam 2 MG/ML VIAL IM (19:06)
[2022-12-18] MEDS: diphenhydrAMINE HCL 50 MG/ML VIAL IM (19:06)
--- NOTE | 2022-12-18 19:16 | ED_ITS ---
HPI - General Adult General Chief complaint: Psychiatric Symptoms Stated complaint: ETOH/ Substance Abuse Time Seen by Provider: 12/18/22 18:40 Source: patient Mode of arrival: ambulatory (Was brought in by daughter) Limitations: other (Patient uncooperative and very intoxicated) History of Present Illness HPI narrative: 62-year-old female brought into the emergency department by daughter has a past medical history of alcohol abuse, alcohol withdrawal seizures, bipolar disorder presenting to the emergency department uncooperative, intoxicated and unwilling to cooperate with staff, started screaming and was combative with security and staff in the waiting room, patient immediately was brought into a room. Patient to intoxicated to walk was brought in in a wheelchair. Unable to provide history or review of systems. Related Data Home Medications Medication Instructions Recorded Confirmed No Known Home Meds 11/11/22 11/28/22 Allergies Allergy/AdvReac Type Severity Reaction Status Date / Time No Known Allergies Allergy Verified 10/02/21 12:49 Review of Systems Review of Systems: Patient very intoxicated and uncooperative. Yes Unobtainable due to mental status PMFSH Past Medical History Attestation statement: The following information was validated with the patient. Source: old records reviewed and nursing notes reviewed Medical History Alcoholism MDD (major depressive disorder), recurrent episode, moderate Social History Social History Household Members: None Housing: House Do you presently have visiting nurse or other home services: No Alcohol intake: current Alcohol intake frequency: 3 or more drinks per day Alcohol type: hard liquor Patient Tobacco Use Status: Never used Tobacco Substance Use Type: Marijuana Advance Directives: No Advance Directives Information Provided: No service: No Current occupational status: employed Physical Exam ED Vital Signs: Vital Signs - 24 hr 12/18/22 19:02 12/18/22 18:55 12/18/22 18:40 Temperature 97.6 F Pulse Rate 121 H 97 20 L Respiratory Rate 17 15 Blood Pressure 167/89 H Pulse Oximetry 98 97 Oxygen Delivery Method Room Air Room Air 12/18/22 21:04 12/18/22 21:23 12/18/22 21:28 Temperature 97.8 F Pulse Rate 79 78 Respiratory Rate 16 16 Blood Pressure 77/51 L 98/62 98/62 Pulse Oximetry 95 92 Oxygen Delivery Method Room Air Room Air BMI result Body Mass Index 22.3 vss Appearance: Alert.? Oriented X3.? No acute distress.?Smells like alcohol. Uncooperative. Combative/agressive towards staff and punching the wall. Head: Normocephalic, atraumatic, no step-offs or deformities Eyes: Pupils equal, round and reactive to light.? Neck: Normal inspection.? Neck supple.? CVS: Normal heart rate and rhythm.? Pulses normal.? Respiratory: No respiratory distress.? Breath sounds normal.? Abdomen: Soft and nontender.? Skin: Skin warm and dry.? Normal skin color.? Normal skin turgor.? Extremities: No lower extremity edema.? No calf ttp. 5/5 strength to bilateral upper and lower extremities Neuro: Oriented X 3.? No motor deficit.? No sensory deficit. CN 2-12 intact Course Reevaluation(s) Reevaluation #1: Spoke to patients reggie Bowers. Daughter tells me that her mother was in her basement on the phone w/ crisis said concerning things and PD arrived at reggie ruiz. States her mother drank a significant amount of vodka today. Reports that patient was sober for a few weeks. Patient made a comment to daughter that next time she got drunk she was going to try to kill herself. Patient doesn't have a steady housing situation. Has mostly been staying with daughter. Time: 19:18 Reevaluation #2: CBC with a baseline normocytic anemia. Chemistry with potassium is 3.1, IV potassium ordered as well as repeat BMP. Total creatinine kinase 147 not consistent with acute rhabdomyolysis however will hydrate patient. No other acute electrolyte abnormalities requiring acute intervention. Patient's ethanol level 327. Urine urine toxicology pending. Patient is COVID negative. Patient's blood pressure did go down however an IV was placed as well as 2 L of IV fluid improvement in blood pressure. Chest x-ray unremarkable. Head CT with no acute intracranial abnormality. Motion degraded examination is cervical spine however with this limitation no evidence of acute fracture traumatic malalignment. Patient is common cooperative at this time. There is a BMP pending, sign out to night provider Dr. Bearden who will follow. Patient will be seen by care team once clinically sober. Will place in physician observation to allow more time for medical clearance and evaluation by care team Time: 21:43 Medications Administered Discontinued Medications Generic Name Dose Route Start Last Admin Trade Name Dax PRN Reason Stop Dose Admin Diphenhydramine HCl 50 mg 12/18/22 18:40 12/18/22 19:06 Diphenhydramine Hcl 50 Mg/Ml Vial IM 12/18/22 18:41 50 mg ONCE ONE Administration Haloperidol Lactate 5 mg 12/18/22 18:40 12/18/22 19:06 Haloperidol Lactate 5 Mg/Ml Vial IM 12/18/22 18:41 5 mg ONCE ONE Administration Lorazepam 2 mg 12/18/22 18:40 12/18/22 19:06 Lorazepam 2 Mg/Ml Vial IM 12/18/22 18:41 2 mg ONCE ONE Administration Medical Decision Making Medical Decision Making [facility] Narrative: 184 62 year old female brought into the emergency department my daughter with alcohol intoxication. Patient making suicidal statements in the waiting room, combative towards staff was brought straight into the main emergency department Medication restraints are warranted patient is a threat to self and others around her. Physical exam patient alert and oriented x4. Smells like alcohol. Rapid reg ular rhythm likely sinus tachycardia from agitation. Concerns for acute alcohol intoxication. Other differentials include polysubstance abuse. Will obtain EKG to confirm cardiac rhythm. Will also rule out electrolyte abnormalities. I do not suspect metabolic disturbances however will rule out. Plan Medical restraints, medical evaluation then patient will be seen by the care team for suicidal ideation Differential Diagnosis Differential Diagnoses: The differential diagnosis associated with the presentation includes Concerns for acute alcohol intoxication. Other differentials include polysubstance abuse. Will obtain EKG to confirm cardiac rhythm. Will also rule out electrolyte abnormalities. I do not suspect metabolic disturbances however will rule out. Admission/Observation Consideration of admission/observation: Escalation of care including adm ission/observation considered Lab Data [facility] Lab Attestation statement: I reviewed the patient's lab results. 12/18/22 19:40 12/18/22 19:40 Labs: Lab Results 12/18/22 12/18/22 12/18/22 Range/Units 19:40 19:40 19:40 WBC 8.1 (4.8-10.8) X10*3/uL RBC 3.77 L (4.20-5.50) X10*6/uL Hgb 10.9 L (12.0-16.0) g/dl Hct 32.4 L (37.0-47.0) % MCV 85.9 (80.0-98.0) fL MCH 28.9 (27.0-33.0) pg MCHC 33.6 (31.0-35.0) g/dl RDW 16.3 H (11.0-16.0) % Plt Count 411 H (160-400) X10*3/uL MPV 9.1 L (9.4-12.3) fL Immature Gran % (Auto) 0.1 (0.0-0.4) % Neut % (Auto) 33.2 L (45-73) % Lymph % (Auto) 55.0 H (20-40) % [place] % (Auto) 10.0 (2-11) % Eos % (Auto) 1.1 (0-4) % Baso % (Auto) 0.6 (0-2) % Lymph # (Auto) 4.4 (1.2-4.9) X10*3/uL [place] # (Auto) 0.8 (0.1-1.2) X10*3/uL Eos # (Auto) 0.1 (0.0-0.4) X10*3/uL Baso # (Auto) 0.1 (0.0-0.2) X10*3/uL Abs Immat Gran (auto) 0.01 (0.00-0.03) X10*3/uL Absolute Neuts (auto) 2.7 (2.0-8.3) x10*3/uL Absolute Nucleated RBC 0.000 (0.0-0.012) X10*3/uL Nucleated RBC % (auto) 0.0 (0.0-0.2) /100WBC Sodium 139 (135-145) mmol/L Potassium 3.1 L D (3.3-5.1) mmol/L Chloride 107 (96-108) mmol/L Carbon Dioxide 19 L (22-29) mmol/L Anion Gap 16 (12-20) BUN 10 (9-16) mg/dL Creatinine 0.76 (0.5-1.4) mg/dL Estim Creat Clear Calc 67.9 Estimated GFR > 60 Random Glucose 81 (60-115) mg/dL Calcium 9.0 (8.4-10.2) mg/dL Magnesium 2.0 (1.6-2.6) mg/dL Total Bilirubin < 0.2 (0.0-1.0) mg/dL AST 25 (5-31) U/L ALT 20 (0-31) U/L Alkaline Phosphatase 78 (39-117) U/L Total Creatine Kinase 147 H (26-140) U/L Total Protein 6.3 L (6.5-8.0) g/dL Albumin 3.9 (3.5-5.0) g/dL Ethyl Alcohol 327 H* mg/dL COVID-19 (ALFRED) Negative (Negative) COVID-19 Clin Com See Note Independent Interpretation I performed an independent interpretation of an: EKG (Ventricular rate of 76, AL normal, QRS normal, QT/QTC normal. EKG with normal sinus rhythm no signs of acute ischemia.), Plain X-Ray (Unremarkable chest x-ray) and CT Scan (CT of head and cervical spine unremarkable) Radiology Impression Discussion of test interpretation with radiology: I have reviewed the radiologist's reading. Core Measures AMI core measures followed: Yes Measure exclusions: not indicated Critical Care Time Critical Care Time Critical Care Time: No Discharge Plan Discharge Clinical Impression: Suicidal ideation, Alcohol intoxication Patient Disposition: Still a Patient Prescriptions: No Action No Known Home Meds Interventions: [place]-Suicide Risk Severity Scale Last Done: 12/18/22 19:03
--- NOTE | 2022-12-18 19:18 | PC.NURSE ---
Pt came in via waiting room, violent and combative with staff, verbal order for Benadryl, Haldol and ativan. Pt was able to take medications with minimal problems. Pt has 1:1 sitter at this time
[2022-12-18 19:45] LABS: MANUAL DIFF FLAG NO
[2022-12-18 20:04] LABS: COVID-19 Test Negative (Negative); IDNOW Serial# 08D9AD1C
[2022-12-18 20:05] LABS: Alanine Aminotransferase 20 U/L (0-31); Albumin Level 3.9 g/dL (3.5-5.0); Alkaline Phosphatase 78 U/L (39-117); Anion Gap 16 (12-20); Aspartate Amino Transferase 25 U/L (5-31); Bilirubin Total < 0.2 mg/dL (0.0-1.0); Blood Urea Nitrogen 10 mg/dL (9-16); Carbon Dioxide 19 mmol/L (22-29); Chloride 107 mmol/L (96-108); Creatinine Clr Calc Pharmacy 67.9; Estimated Glomerular Filt Rate > 60; Ethanol 327 mg/dL; Glucose Random 81 mg/dL (60-115); Potassium 3.1 mmol/L (3.3-5.1); Sodium 139 mmol/L (135-145); Total Protein 6.3 g/dL (6.5-8.0)
[2022-12-18 20:08] LABS: Basophils Absolute Auto 0.1 X10*3/uL (0.0-0.2); Basophils Percent Auto 0.6 % (0-2); Eosinophils Absolute Auto 0.1 X10*3/uL (0.0-0.4); Eosinophils Percent Auto 1.1 % (0-4); Hematocrit 32.4 % (37.0-47.0); Hemoglobin 10.9 g/dl (12.0-16.0); Imm Gran Abs Auto 0.01 X10*3/uL (0.00-0.03); Imm Gran Pct Auto 0.1 % (0.0-0.4); Lymphocytes Absolute Auto 4.4 X10*3/uL (1.2-4.9); Mean Corpuscular HGB Conc 33.6 g/dl (31.0-35.0); Mean Corpuscular Hemoglobin 28.9 pg (27.0-33.0); Mean Corpuscular Volume 85.9 fL (80.0-98.0); Mean Platelet Volume 9.1 fL (9.4-12.3); Monocytes Absolute Auto 0.8 X10*3/uL (0.1-1.2); Neutrophils Absolute Auto 2.7 x10*3/uL (2.0-8.3); Neutrophils Percent Auto 33.2 % (45-73); Platelet Count 411 X10*3/uL (160-400); Red Blood Count 3.77 X10*6/uL (4.20-5.50); Red Cell Distribution Width 16.3 % (11.0-16.0); White Blood Count 8.1 X10*3/uL (4.8-10.8)
--- NOTE | 2022-12-18 21:10 | PC.NURSE ---
Pt noted to be hypotensive per EDTA. #18 PIV initiated to right wrist. 2000 cc bolus initiated.
--- NOTE | 2022-12-18 21:27 | PC.NURSE ---
BP improved with fluid bolus
[2022-12-18] MEDS: Potassium Chloride/H20 10 MEQ/100 ML PIGGYBACK 100 MEQ IV ×2 (22:44→23:44)
[2022-12-18 22:49] LABS: Anion Gap 13 (12-20); Blood Urea Nitrogen 10 mg/dL (9-16); Calcium 7.8 mg/dL (8.4-10.2); Carbon Dioxide 18 mmol/L (22-29); Chloride 112 mmol/L (96-108); Creatinine Clr Calc Pharmacy 78.2; Estimated Glomerular Filt Rate > 60; Glucose Random 74 mg/dL (60-115); Potassium 3.4 mmol/L (3.3-5.1); Sodium 140 mmol/L (135-145)
--- NOTE | 2022-12-19 03:36 | PC.NURSE ---
Pt moved into Exam room 6 and placed on monitor. Sleeping at this time. Seizure pads applied to stretcher d/t hx withdrawal seizures.
[2022-12-19 05:00] VITALS: BP 92/52; PULSE 80; RESP 16; TEMP 36.4; O2SAT 94
[2022-12-19 06:30] VITALS: BP 95/59; PULSE 82; RESP 14; TEMP 36.6; O2SAT 97
[2022-12-19 07:09] VITALS: BP 103/58; PULSE 89; RESP 13; O2SAT 96
[2022-12-19 08:04] LABS: Appearance Urine Clear; Color Urine Yellow; Glucose Urine UA Negative (Negative); Leukocyte Esterase Urine Trace (Negative); Nitrite Urine Negative (Negative); PH 5.5 (5.0-9.0); UMIC TRIGGER UACC YES; Urine Blood Negative (Negative); Urine Ketones Negative (Negative); Urine Protein Negative (Neg-Trace)
[2022-12-19 08:06] LABS: Amphetamine Screen Urine Not Detected (Not Detect); Barbiturates, Urine Not Detected (Not Detect); Benzodiazepines Screen Urine Not Detected (Not Detect); Cannabinoid Screen Urine Not Detected (Not Detect); Cocaine Screen Urine Not Detected (Not Detect); Fentanyl, urine POSITIVE (Not Detect); Opiate Screen Urine Not Detected (Not Detect); Phencyclidine Screen Urine Not Detected (Not Detect)
[2022-12-19 08:10] LABS: Bacteria Urine None Seen (None Seen); Hyaline Casts Urine 0-2 /LPF (0-2); RBC Urine 0-2 /HPF (0-2); Squamous Epithelial Cell Urine 0-2 /HPF (0-2); WBC Urine 0-5 /HPF (0-5)
--- NOTE | 2022-12-19 09:57 | PHA.MEDREC ---
Pharmacy Consult ? Medication Reconciliation Pharmacy has completed the medication reconciliation. Pt states she only take lamotrigine 25mg, that she has only been taking 1 tablet daily and has not yet begun to titrate up.
--- NOTE | 2022-12-19 12:07 | PC.NURSE ---
pt reports wanting to go home. informed pt that she needed to wait for results of the care team assessment. pt currently denies SI, reports she said that when she was drunk . CARE team informed t/w that family is working on obtaining a section 35 at noon today. provider informed as pt not on a section 12.
[2022-12-19 12:32] VITALS: BP 101/65; PULSE 86; RESP 16; O2SAT 98
== END 2022-12-19 12:55 | disposition home or self-care (01) ==
PROVIDERS: Physician Assistant; Emergency Provider Internal Medicine
DX: R45.851 Suicidal ideations (principal); F10.220 Alcohol dependence with intoxication, uncomplicated; Y90.8 Blood alcohol level of 240 mg/100 ml or more; F19.10 Other psychoactive substance abuse, uncomplicated; Z20.822 Contact with and (suspected) exposure to COVID-19
CPT/HCPCS: 36415; 70450; 71045; 72125; 80048; 80053; 80307; 81001; 81003; 82077; 82550; 83735; 85025; 87635; 93005; 96365; 96366; 96372; 99285; J1200; J2060; S9485